=== PATIENT | female | born 1985 | race Caucasian/White ===

== ENCOUNTER 2017-02-01 12:03 | Emergency (ER) | payer SELFPAY ==
--- NOTE | 2017-02-01 13:43 | RADIOLOGY REPORT (SQ) ---
EXAM DESCRIPTION: ANKLE LEFT COMPLETE; FOOT LEFT COMPLETE COMPLETED DATE/TIME: 02/01/2017 1:27 pm REASON FOR STUDY: fall, pain COMPARISON: Foot radiographs from 2011. FINDINGS: Three views left ankle: No fracture or regional significant soft tissue swelling. Three views of the left foot: Soft tissue swelling over the dorsal forefoot. No radiopaque foreign body or fracture evident. IMPRESSION: 1. No overt fracture of the left ankle or foot. Soft tissue swelling over the foot as a leslie. TECHNICAL DOCUMENTATION: JOB ID: [id number]
[2017-02-01] MEDS ORDERED: OXYCODONE-ACETAMINOPHEN 5-325 MG TABLET PO ONE (14:02)
--- NOTE | 2017-02-01 14:59 | ER Document Report ---
HPI - HPI Onset: Yesterday - last evening Onset/Duration: Sudden - Patient was walking to the dark and she apparently kicked a tree stump when she is wearing flip-flops. His pain along her toes and along the top of her left foot. Been able to bear weight but it is painful Quality of pain: Achy, Throbbing Pain Level: 2 Exacerbated by: Movement, Walking Relieved by: Supine, Sitting - CARDIOVASCULAR Cardiovascular: DENIES: Chest pain - REPRODUCTIVE Reproductive: DENIES: : - DERM Skin Color: Normal, [place] Past Medical History - Social History Smoking Status: Current Every Day Smoker Chew tobacco use (# tins/day): No Frequency of alcohol use: None Drug Abuse: None Family History: CAD, Hypertension Patient has suicidal ideation: No Patient has homicidal ideation: No Endocrine Medical History: Reports: Hx Hypothyroidism Renal/ Medical History: Denies: Hx Peritoneal Dialysis Musculoskeltal Medical History: Reports Hx Musculoskeletal Trauma Psychiatric Medical History: Reports: Hx Depression Traumatic Medical History: Reports: Hx Fractures Past Surgical History: Reports: Hx Gynecologic Surgery - x5, Hx Orthopedic Surgery - Right hand - Immunizations Immunizations up to date: Yes Hx Diphtheria, Pertussis, Tetanus Vaccination: Yes - 07/21/2010 Hx Pneumococcal Vaccination: 07/21/00 Vertical Provider Document - CONSTITUTIONAL Agree With Documented VS: Yes Exam Limitations: No Limitations General Appearance: WD/WN, No Apparent Distress - INFECTION CONTROL TRAVEL OUTSIDE OF THE [place]. IN LAST 30 DAYS: No - RESPIRATORY O2 Sat by Pulse Oximetry: 100 - CARDIOVASCULAR Pulses: Normal: Dorsalis pedis - MUSCULOSKELETAL/EXTREMETIES Musculoskeletal/Extremeties: MAEW, FROM, Tender - on the top of her foot, nontender to metatarsal compression, Edema, Eccymosis - NEURO Level of Consciousness: Awake, Alert, Appropriate Motor/Sensory: No Motor Deficit, No Sensory Deficit - DERM Integumentary: Warm, Dry, No Rash. negative: Laceration Notes: Abrasion noted over her toes and the top of her foot but no evidence of lacerations involving the dermis or subcutaneous tissue. Course - Re-evaluation Re-evalutation: 02/01/17 21:40 Patient is a 31-year-old female who is hemodynamic stable, no acute distress afebrile. No evidence of fracture dislocation noted on x-ray. Patient's wounds were irrigated and cleaned at the bedside with dry sterile dressing applied. Patient given an Morris wrap and crutches. Given instructions for rest, ice, compression and elevation. Patient can follow-up with primary care. - Vital Signs Vital signs: Temp Pulse Resp BP Pulse Ox 99.1 F 110 H 16 136/76 H 100 02/01/17 12:14 02/01/17 12:14 02/01/17 12:14 02/01/17 12:14 02/01/17 12:14 - Diagnostic Test Radiology reviewed: Image reviewed, Reports reviewed Discharge - Discharge Clinical Impression: Foot injury Qualifiers: Encounter type: initial encounter Laterality: left Qualified Code(s): S99.922A - Unspecified injury of left foot, initial encounter Condition: Good Disposition: HOME, SELF-CARE Instructions: Contusion ([facility]), Use of Crutches ([facility]), Morris Wrap ([facility]), Ice & Elevation ([facility]), Use of Fdap-Fkk-Briyven Ibuprofen ([facility])
[2017-02-01 15:11] VITALS: BP 131/74
== END 2017-02-01 15:10 | disposition home or self-care (01) ==
LOC: ER 12:03
DX: S90.415A Abrasion, left lesser toe(s), initial encounter (principal); S90.812A Abrasion, left foot, initial encounter; W22.09XA Striking against other stationary object, initial encounter; Y93.01 Activity, walking, marching and hiking; F17.200 Nicotine dependence, unspecified, uncomplicated
CPT/HCPCS: 99283

== ENCOUNTER 2017-02-07 12:04 | Emergency (ER) | payer SELFPAY ==
--- NOTE | 2017-02-07 14:01 | ER Document Report ---
HPI - HPI Patient complains to provider of: foot pain Onset: Last week Onset/Duration: Persistent Quality of pain: Achy Pain Level: 2 Context: Patient states she was walking at night and kicked a tree stump. Patient complains of continued left foot pain and left second toe tenderness. Patient states she was seen in the emergency department and told that she only has a bruise. Patient has crutches at home but has not been using them. Associated Symptoms: Other - Foot pain Exacerbated by: Movement, Walking Relieved by: Denies Similar symptoms previously: No Recently seen / treated by doctor: Yes - ROS ROS below otherwise negative: Yes Systems Reviewed and Negative: Yes All other systems reviewed and negative - CONSTITUTIONAL Constitutional: DENIES: Fever, Chills - NEURO Neurology: DENIES: Weakness - CARDIOVASCULAR Cardiovascular: DENIES: Chest pain - REPRODUCTIVE Reproductive: DENIES: : - MUSCULOSKELETAL Musculoskeletal: REPORTS: Extremity pain, Swelling - DERM Skin Color: Ecchymosis Skin Problems: Abrasion Past Medical History - General Information source: Patient - Social History Smoking Status: Current Every Day Smoker Chew tobacco use (# tins/day): No Frequency of alcohol use: None Drug Abuse: None Occupation: Home care Lives with: Family Family History: CAD, Hypertension Renal/ Medical History: Denies: Hx Peritoneal Dialysis Musculoskeltal Medical History: Reports Hx Musculoskeletal Trauma Psychiatric Medical History: Reports: Hx Depression Traumatic Medical History: Reports: Hx Fractures Past Surgical History: Reports: Hx Gynecologic Surgery - x5, Hx Orthopedic Surgery - Right hand - Immunizations Immunizations up to date: Yes Hx Diphtheria, Pertussis, Tetanus Vaccination: Yes - 07/21/2010 Hx Pneumococcal Vaccination: 07/21/00 Vertical Provider Document - CONSTITUTIONAL Agree With Documented VS: Yes Exam Limitations: No Limitations General Appearance: WD/WN, No Apparent Distress - INFECTION CONTROL TRAVEL OUTSIDE OF THE [place] IN LAST 30 DAYS: No - HEENT HEENT: Atraumatic, Normocephalic - NECK Neck: Normal Inspection - RESPIRATORY Respiratory: No Respiratory Distress O2 Sat by Pulse Oximetry: 98 - CARDIOVASCULAR Pulses: Normal: Posterior tibial, Dorsalis pedis - MUSCULOSKELETAL/EXTREMETIES Musculoskeletal/Extremeties: MAEW, Tender - Left foot tenderness to distal second through fourth metatarsals. Patient with overlying 1+ edema and resolving ecchymosis., Edema, Eccymosis - NEURO Level of Consciousness: Awake, Alert, Appropriate Motor/Sensory: No Motor Deficit - DERM Integumentary: Warm, Dry Notes: Abrasions to 1, 2, 3 rd toes of left foot Course - Vital Signs Vital signs: Temp Pulse Resp BP Pulse Ox 99.0 F 113 H 16 117/69 98 02/07/17 12:08 02/07/17 12:08 02/07/17 12:08 02/07/17 12:08 02/07/17 12:08 - Diagnostic Test Radiology reviewed: Reports reviewed - reviewed x ray from previous ER visit Procedures - Immobilization Left Foot Pre-Proc Neuro Vasc Exam: Normal Immobilizer type: Morris wrap, Post-op shoe Performed by: PCT Post-Proc Neuro Vasc Exam: Normal Alignment checked and good: Yes Discharge - Discharge Clinical Impression: Sprain of foot, left Qualifiers: Encounter type: initial encounter Qualified Code(s): S93.602A - Unspecified sprain of left foot, initial encounter Contusion Qualifiers: Encounter type: initial encounter Contusion area: foot Laterality: left Qualified Code(s): S90.32XA - Contusion of left foot, initial encounter Condition: Stable Disposition: HOME, SELF-CARE Instructions: Sprain ([facility]), Oral Narcotic Medication ([facility]), Morris Wrap ([facility]), Post-Op Shoe ([facility]), Use of Crutches ([facility]) Additional Instructions: Return immediately for any new or worsening symptoms Followup with your primary care provider, call tomorrow to make a followup appointment Follow-up with orthopedic doctor for further evaluation, call Friday for an appointment Use your crutches you have at home to help with ambulation. weightbearing as tolerated to your left foot Prescriptions: Hydrocodone/Acetaminophen [[place] 5-325 Tablet] 1 each PO Q4 PRN #15 tablet PRN Reason: Referrals: [facility] [Provider Group] - Follow up as needed [facility] [Provider Group] - 02/10/17
[2017-02-07] MEDS ORDERED: HYDROCODONE/ACETAMINOPHEN 5-325 MG TABLET PO ONE (14:27)
[2017-02-07 14:29] VITALS: BP 111/73
== END 2017-02-07 14:36 | disposition home or self-care (01) ==
LOC: ER 12:04
DX: S93.602A Unspecified sprain of left foot, initial encounter (principal); S90.32XA Contusion of left foot, initial encounter; W22.09XA Striking against other stationary object, initial encounter; F17.200 Nicotine dependence, unspecified, uncomplicated
CPT/HCPCS: 99283

== ENCOUNTER 2017-03-03 12:54 | Emergency (ER) | payer SELFPAY ==
[2017-03-03] MEDS ORDERED: IBUPROFEN 800 MG TABLET PO ONE (14:08)
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
[2017-03-03 15:06] VITALS: BP 125/77
== END 2017-03-03 15:07 | disposition home or self-care (01) ==
LOC: ER 12:54
DX: S00.83XA Contusion of other part of head, initial encounter (principal); S60.221A Contusion of right hand, initial encounter; R51 Headache; M79.641 Pain in right hand; R11.2 Nausea with vomiting, unspecified; Y09 Assault by unspecified means; F17.210 Nicotine dependence, cigarettes, uncomplicated
CPT/HCPCS: 70450; 70486; 99284

== ENCOUNTER 2017-05-20 13:18 | Emergency (ER) | payer MEDICAID ==
--- NOTE | 2017-05-20 13:44 | ER Document Report ---
ED Medical Screen (RME) - General Chief Complaint: Abdominal Cramping Stated Complaint: ABDOMINAL PAIN,VAGINAL DISCHARGE Time Seen by Provider: 05/20/17 13:42 Notes: 11wks preg with pain/pink dc. TRAVEL OUTSIDE OF THE [place] IN LAST 30 DAYS: No - Related Data Allergies/Adverse Reactions: No Known Allergies Allergy (Verified 05/20/17 13:26) Past Medical History Endocrine Medical History: Reports: Hx Hypothyroidism Renal/ Medical History: Denies: Hx Peritoneal Dialysis GI Medical History: Reports: Hx Gastroesophageal Reflux Disease, Hx Ulcer, Hx Colonoscopy, Hx Endoscopy Musculoskeltal Medical History: Reports Hx Arthritis, Reports Hx Musculoskeletal Trauma - fx finger Psychiatric Medical History: Reports: Hx Anxiety, Hx Depression Traumatic Medical History: Reports: Hx Fractures Past Surgical History: Reports: Hx Gynecologic Surgery - x5, Hx Orthopedic Surgery - Right hand - Immunizations Immunizations up to date: Yes Hx Diphtheria, Pertussis, Tetanus Vaccination: Yes - 07/21/2010
[2017-05-20 14:10] LABS: ABSOLUTE BASOPHILS # (AUTO) 0.1 10^3/uL (0.0-0.2); ABSOLUTE EOSINOPHILS # (AUTO) 0.2 10^3/uL (0.0-0.6); ABSOLUTE LYMPHOCYTES (AUTO) 3.2 10^3/uL (0.5-4.7); ABSOLUTE MONOCYTES (AUTO) 0.8 10^3/uL (0.1-1.4); ABSOLUTE NEUT (AUTO) 7.5 10^3/uL (1.7-8.2); BASOPHILS % (AUTO) 0.5 % (0-2); HEMATOCRIT 37.3 % (36.0-47.0); HEMOGLOBIN 12.2 g/dL (12.0-15.5); HGB HCT DIFFERENCE -0.7; LYMPHOCYTES % (AUTO) 27.3 % (13-45); MEAN CORPUSCULAR HEMOGLOBIN 28.9 pg (27.0-33.4); MEAN CORPUSCULAR HGB CONC 32.8 g/dL (32.0-36.0); MEAN CORPUSCULAR VOLUME 88 fl (80-97); MONOCYTES % (AUTO) 6.6 % (3-13); RED BLOOD COUNT 4.23 10^6/uL (3.72-5.28); RED CELL DISTRIBUTION WIDTH 14.2 % (11.5-14.0); SEGMENTED NEUTROPHILS % (AUTO) 63.6 % (42-78); WHITE BLOOD COUNT 11.7 10^3/uL (4.0-10.5)
[2017-05-20 14:18] LABS: APPEARANCE,URINE SLIGHTLY-CLOUDY; BILIRUBIN,URINE NEGATIVE (NEGATIVE); GLUCOSE, URINE NEGATIVE (NEGATIVE); KETONES,URINE NEGATIVE (NEGATIVE); LEUKOCYTE ESTERASE,URINE TRACE (NEGATIVE); NITRITE,URINE NEGATIVE (NEGATIVE); PROTEIN,URINE NEGATIVE (NEGATIVE); URINE SPECIFIC GRAVITY 1.026
[2017-05-20 14:30] LABS: ALANINE AMINOTRANSFERASE 89 U/L (9-52); ALBUMIN 4.2 g/dL (3.5-5.0); ALKALINE PHOSPHATASE 61 U/L (38-126); ANION GAP 13 (5-19); ASPARTATE AMINO TRANSFERASE 55 U/L (14-36); BILIRUBIN,DIRECT 0.3 mg/dL (0.0-0.4); BILIRUBIN,TOTAL 0.5 mg/dL (0.2-1.3); BLOOD UREA NITROGEN 13 mg/dL (7-20); CALCIUM 9.7 mg/dL (8.4-10.2); CARBON DIOXIDE 25 mmol/L (22-30); CHLORIDE 106 mmol/L (98-107); CREATININE RESULT 0.61 mg/dL (0.52-1.25); GLUCOSE 71 mg/dL (75-110); POTASSIUM 4.6 mmol/L (3.6-5.0); SODIUM 144.1 mmol/L (137-145); TOTAL PROTEIN 7.8 g/dL (6.3-8.2)
--- NOTE | 2017-05-20 14:47 | RADIOLOGY REPORT (SQ) ---
EXAM DESCRIPTION: U/S OB TRANSVAGINAL W/O DOP COMPLETED DATE/TIME: 05/20/2017 2:35 pm REASON FOR STUDY: preg/pain/bleeding COMPARISON: None. TECHNIQUE: Transvaginal static and realtime grayscale images acquired of the pelvis. Additional nimo cted spectral and color Doppler images recorded. All images stored on PACs. bHCG: Not available. LIMITATIONS: None. FINDINGS: FETUS: Living intrauterine . EGA: 5 week 6 day. ABDIRAHMAN: 01/14/2018. FHR: 90 beats per minute. SUBCHORIONIC BLEED: Yes. SIZE OF BLEED: 0.5 x 0.8 cm. UTERUS: No masses. No anomalies. CERVICAL LENGTH: 2.6 cm. Closed. RIGHT ADNEXA: Ovary not identified. No adnexal free fluid. No adnexal masses. LEFT ADNEXA: Normal ovary with normal vascular flow. No adnexal free fluid. Corpus Luteum measuring 1.1 x 1.4 cm. FREE FLUID: None. OTHER: No other significant finding. IMPRESSION: LIVING INTRAUTERINE . EGA 5 WEEK 6 DAY. SMALL SUBCHORIONIC BLEED. Trimester of : First - 0 to 13 weeks. TECHNICAL DOCUMENTATION: JOB ID: [id number] [employer]- All Rights Reserved
--- NOTE | 2017-05-20 15:14 | ER Document Report ---
ED General - General Chief Complaint: Abdominal Cramping Stated Complaint: ABDOMINAL PAIN,VAGINAL DISCHARGE Time Seen by Provider: 05/20/17 13:42 TRAVEL OUTSIDE OF THE [place] IN LAST 30 DAYS: No - HPI Notes: Patient is a 31-year-old female who presents the ED with a positive tests at the health department with newfound spotting that began today with occasional pelvic cramping. Patient states that she had a miscarriage about 6 years ago around the 7-8 week gestation age day. Patient states that she does have a history of endometriosis. She denies any other significant past medical history or drug allergies. She does admit to smoking, but is trying to cut back because of the . She denies any IV drug use or alcohol use. Patient states that she does have a referral pending for an OB/ [facility] through the health department. She denies any other recent illness. She is eating and drinking without any difficulties. + occ n/v in the mornings. She still urinating normally and having normal bowel movements. Patient states that she has not been spotting since the initial found blood prior to arrival. Denies any headache, fever, URI, sore throat, chest pain, palpitations, syncope , cough, shortness of breath, wheeze, dyspnea, diarrhea, urinary retention, dysuria, hematuria, or rash. - Related Data Allergies/Adverse Reactions: No Known Allergies Allergy (Verified 05/20/17 13:26) Past Medical History - Social History Smoking Status: Current Every Day Smoker Family History: Arthritis, CAD, CVA, DM, Hyperlipidemia, Hypertension, Thyroid Disfunction Patient has suicidal ideation: No Patient has homicidal ideation: No Endocrine Medical History: Reports: Hx Hypothyroidism Renal/ Medical History: Denies: Hx Peritoneal Dialysis GI Medical History: Reports: Hx Gastroesophageal Reflux Disease, Hx Ulcer, Hx Colonoscopy, Hx Endoscopy Musculoskeltal Medical History: Reports Hx Arthritis, Reports Hx Musculoskeletal Trauma - fx finger Psychiatric Medical History: Reports: Hx Anxiety, Hx Depression Traumatic Medical History: Reports: Hx Fractures Past Surgical History: Reports: Hx Gynecologic Surgery - x5, Hx Orthopedic Surgery - Right hand - Immunizations Immunizations up to date: Yes Hx Diphtheria, Pertussis, Tetanus Vaccination: Yes - 07/21/2010 Hx Pneumococcal Vaccination: 07/21/00 Review of Systems - Review of Systems Notes: REVIEW OF SYSTEMS: CONSTITUTIONAL : Denies fever, chills, or sweats. Denies recent illness. EENT: Denies eye, ear, throat, or mouth pain or symptoms. Denies nasal or sinus congestion or discharge. Denies throat, tongue, or mouth swelling or difficulty swallowing. CARDIOVASCULAR: Denies chest pain. Denies palpitations or racing or irregular heart beat. Denies ankle edema. RESPIRATORY: Denies cough, cold, or chest congestion. Denies shortness of breath, difficulty breathing, or wheezing. GASTROINTESTINAL: see hpi GENITOURINARY: Denies difficulty urinating, painful urination, burning, frequency, blood in urine, or discharge. FEMALE GENITOURINARY: see hpi MUSCULOSKELETAL: Denies back or neck pain or stiffness. Denies joint pain or swelling. SKIN: Denies rash, lesions or sores. NEUROLOGICAL: Denies confusion or altered mental status. Denies passing out or loss of consciousness. Denies dizziness or lightheadedness. Denies headache. Denies weakness or paralysis or loss of use of either side. Denies problems with gait or speech. Denies sensory loss, numbness, or tingling. ALL OTHER SYSTEMS REVIEWED AND NEGATIVE. Dictation was performed using [employer] recognition software Physical Exam - Vital signs Notes: PHYSICAL EXAMINATION: GENERAL: Well-appearing, well-nourished and in no acute distress. A&Ox4 LUNGS: Breath sounds clear to auscultation bilaterally and equal. No wheezes rales or rhonchi. HEART: Regular rate and rhythm without murmurs, rubs, gallops. ABDOMEN: Soft, nontender, nondistended abdomen. No guarding, no rebound. No masses appreciated. Normal bowel sounds present. No CVA tenderness bilaterally. : deferred Musculoskeletal: FROM to passive/active. Strength 5+/5. Extremities: No cyanosis, clubbing, or edema b/l. Peripheral pulses 2+. Capillary refill less than 3 seconds. NEUROLOGICAL: Normal speech, normal gait. Normal sensory, motor exams PSYCH: Normal mood, normal affect. SKIN: Warm, Dry, normal turgor, no rashes or lesions noted. Course - Re-evaluation Re-evalutation: 05/20/17 15:28 Patient is an afebrile, well-hydrated, 31-year-old female who presents the ED with a small subchorionic bleed and threatened . Vitals are stable. PE is otherwise unremarkable otherwise. CBC, CMP, urinalysis relatively unremarkable. Patient does have a living intrauterine approximately 5 weeks 6 days and heart rate is 90 bpm with a closed cervix. Risks and benefits of vaginal bleeding with reviewed with the patient. Zofran given p.o. for nausea today. Patient is tolerating p.o. without any difficulties. Low suspicion/risk for acute appendicitis, bowel obstruction, acute cholecystitis, acute cholangitis, perforated diverticulitis, incarcerated hernia, pancreatitis, perforated ulcer, peritonitis, sepsis, pelvic inflammatory disease, ectopic , tubo-ovarian abscess, ovarian torsion, or other systemic emergent condition at this time. Patient is aware that her condition can change from initial presentation and she needs to monitor symptoms closely and seek medical attention if any acute changes. Conservative measures otherwise for symptoms. Recheck with OBGYN in 1-2 days. Recheck with your PCM in 3-5 days. Return to the ED with any worsening/concerning symptoms otherwise as reviewed in discharge. Patient is in agreement. - Laboratory Result Diagrams: 05/20/17 13:58 05/20/17 13:58 Laboratory results interpreted by me: 05/20/17 05/20/17 05/20/17 13:58 13:58 13:58 WBC 11.7 H RDW 14.2 H Glucose 71 L AST 55 H ALT 89 H Beta HCG, Quant 87754.00 H Urine Urobilinogen 2.0 H Ur Leukocyte Esterase TRACE H Urine Ascorbic Acid 40 H Discharge - Discharge Clinical Impression: Subchorionic bleed Qualifiers: Fetus number: single or unspecified fetus Trimester: first trimester Qualified Code(s): O41.8X10 - Other specified disorders of amniotic fluid and membranes, first trimester, not applicable or unspecified; O46.8X1 - Other antepartum hemorrhage, first trimester; O46.8X1 - Other antepartum hemorrhage, first trimester Qualifiers: Weeks of gestation: less than 8 weeks Qualified Code(s): Z3A.01 - Less than 8 weeks gestation of Condition: Stable Disposition: HOME, SELF-CARE Instructions: Ob-[facility] [facility], Bleeding During Early ([facility]) Additional Instructions: Maintain adequate fluid and food intake [place] diet (B.R.A.T.) Bananas, rice, apples, toast, etc Zofran as needed tylenol if needed Monitor for any worsening symptoms Recheck with OB-[facility] in 1-2 days* Recheck with your PCM in 3-5 days Return to the ED with any worsening symptoms and/or development of fever, headache, chest pain, palpitations, syncope, shortness of breath, trouble breathing, abdominal pain, n/v/d, blood in stool/urine, worsening pelvic cramping, worsening vaginal bleeding, weakness, or other worsening symptoms that are concerning to you. Prescriptions: Ondansetron [Zofran Odt 4 mg Tablet] 1 - 2 tab PO Q4H PRN #15 tab.rapdis PRN Reason: For Nausea/Vomiting Referrals: [facility] [Provider Group] - 05/22/17 HAYDEE PAULA MD [ACTIVE STAFF] - 05/22/17
[2017-05-20] MEDS ORDERED: ONDANSETRON 4 MG TAB.RAPDIS PO ONE (15:29)
[2017-05-20 16:03] VITALS: BP 110/50
== END 2017-05-20 16:09 | disposition home or self-care (01) ==
LOC: ER 13:18
DX: O46.8X1 Other antepartum hemorrhage, first trimester (principal); O41.8X10 Other specified disorders of amniotic fluid and membranes, first trimester, not applicable or unspecified; R10.9 Unspecified abdominal pain; N89.8 Other specified noninflammatory disorders of vagina; R10.2 Pelvic and perineal pain; F17.200 Nicotine dependence, unspecified, uncomplicated; Z3A.01 Less than 8 weeks gestation of pregnancy
CPT/HCPCS: 99284; 86900; 86901; 36415; 84702; 85025; 80053; 81001; 76817; S0119

== ENCOUNTER → 2017-06-19 | Outpatient (CLI) | payer SELFPAY ==
--- NOTE | 2017-06-19 16:08 | RADIOLOGY REPORT (SQ) ---
EXAM DESCRIPTION: U/S [id number] TRNABD 1GES W/ODOP COMPLETED DATE/TIME: 06/19/2017 3:49 pm REASON FOR STUDY: Z34.81 ENCOUNTER FOR SUPRVSN OF NORMAL , FIRST TRIMESTER Z34.81 ENCOUNTE R FOR SUPRVSN OF NORMAL , FIRST TRIM COMPARISON: OB ultrasound 05/20/2017, 05/23/2017 TECHNIQUE: Transabdominal static and realtime grayscale images acquired of the pelvis. Additional se lected spectral and color Doppler images recorded. All images stored on PACs. bHCG: Not available LIMITATIONS: Right adnexa not well seen due to bowel gas FINDINGS: There is an intrauterine gestational sac. This is irregular in shape. No embryo is ident ified. By mean sac diameter estimated age is 6 weeks 2 days. This represents a blighted ovum. UTERUS: Normal size, 11 x 4.7 x 6.5 cm in size. CERVICAL LENGTH: 2.7 cm Closed. RIGHT ADNEXA: Not visualized due to adnexal bowel gas. LEFT ADNEXA: Normal ovary with normal vascular flow. Left ovary measures 3.4 x 1.9 by 2.4 cm in size . No adnexal free fluid. No adnexal masses. FREE FLUID: None. OTHER: No other significant finding. IMPRESSION: Empty gestational sac measures 6 weeks in age by mean sac diameter. Blighted ovum. This result was called to anel Mercado message on phone 1540 hours 06/19/2017 Trimester of : First - 0 to 13 weeks. TECHNICAL DOCUMENTATION: JOB ID: [id number] [employer]- All Rights Reserved
== END ==
LOC: RAD 14:50
PROVIDERS: ATTEND Nurse Practitioner Women's Health
DX: Z34.81 Encounter for supervision of other normal pregnancy, first trimester (principal)
CPT/HCPCS: 76801

== ENCOUNTER 2017-07-04 10:25 | Day surgery (SDC) | payer SELFPAY ==
[~2017-07-04 10:25] MED LIST: DEXAMETHASONE SOD PHOSPHATE INJ 4 MG/1 ML VIAL ONE; FENTANYL CITRATE INJ/PF 100 MCG/2 ML AMPUL ONE; MIDAZOLAM 2 MG/2 ML INJ ONE; ONDANSETRON HCL INJ/PF 4 MG/2 ML SDV ONE; PROPOFOL INJ 200 MG/20 ML VIAL IV ONE
[2017-07-04] MEDS ORDERED: KETAMINE HCL INJ 500 MG/10 ML VIAL ONE (12:13)
[2017-07-04] MEDS ORDERED: ACETAMINOPHEN 100 ML IV ONE (12:13)
--- NOTE | 2017-07-04 12:47 | Operative Report ---
Operative Report DATE OF SURGERY: 07/04/17 PREOPERATIVE DIAGNOSIS: Incomplete AB POSTOPERATIVE DIAGNOSIS: Same OPERATION: Suction D&C SURGEON: HAYDEE PAULA ANESTHESIA: GA TISSUE REMOVED OR ALTERED: Uterine contents COMPLICATIONS: None ESTIMATED BLOOD LOSS: Minimal INTRAOPERATIVE FINDINGS: Sounded to 8 cm before and after the case PROCEDURE: Patient was taken the OR and placed in supine position. General anesthesia was induced. She is placed in dorsolithotomy position using Hoang stirrups. Her perineum and vagina were prepared and draped sterile fashion her bladder was drained with a red rubber catheter. A weighted speculum was placed in the anterior lip cervix was grasped with a single-tooth tenaculum. Uterus sounded 8 cm before and after the case. Cervix was gently dilated allowing a size 8 suction curette could be used to evacuate uterine contents. At the end of the case a gentle sharp curette was used to explore the uterus and no retained products were identified. All instruments were removed she is placed back in supine position taken to recovery room in stable condition.
[2017-07-04] MEDS ORDERED: KETOROLAC TROMETHAMINE INJ/PF 30 MG/1 ML SDV ONE (13:04)
[2017-07-04] MEDS ORDERED: RINGERS SOLUTION,LACTATED 1,000 ML IV PRN (13:16)
[2017-07-04] MEDS ORDERED: OXYCODONE-ACETAMINOPHEN 5-325 MG TABLET PO PRN ×4 (13:16→13:34)
[2017-07-04] MEDS ORDERED: IBUPROFEN 800 MG TABLET PO PRN (13:16)
[2017-07-04] MEDS ORDERED: KETOROLAC TROMETHAMINE INJ/PF 30 MG/1 ML SDV IV PRN (13:17)
[2017-07-04] MEDS ORDERED: MEPERIDINE HCL/PF INJ 25 MG/1 ML DISP.SYRIN IV PRN (13:34)
[2017-07-04] MEDS ORDERED: PROMETHAZINE HCL INJ 25 MG/1 ML VIAL IV PRN (13:34)
[2017-07-04] MEDS ORDERED: DIPHENHYDRAMINE HCL 50 MG/ML VIAL IV PRN (13:34)
[2017-07-04 15:12] VITALS: BP 114/66
== END 2017-07-04 15:00 | disposition home or self-care (01) ==
LOC: OROUT 10:25
PROVIDERS: ATTEND Obstetrics & Gynecology
PROC: 10D17Z9 Manual Extraction of Products of Conception, Retained, Via Natural or Artificial Opening (ICD-10-PCS; principal; 2017-07-04 12:30)
DX: O03.39 Incomplete spontaneous abortion with other complications (principal); F17.210 Nicotine dependence, cigarettes, uncomplicated; Z79.899 Other long term (current) drug therapy
CPT/HCPCS: 88305 ×2; 59812; J2250; J1100; J3490; J1885; J2405; J2704; J0131; 1965; J3010

== ENCOUNTER 2017-07-28 08:24 | Emergency (ER) | payer MEDICAID ==
[2017-07-28 08:28] VITALS: BP 129/62
--- NOTE | 2017-07-28 08:49 | ER Document Report ---
ED General - General Chief Complaint: Pain With Urination Stated Complaint: URINARY ISSUES Time Seen by Provider: 07/28/17 08:32 Mode of Arrival: Ambulatory Information source: Patient Notes: 31-year-old female presents with complaints of burning on urination is worsened over the past few days. Patient notes symptoms are similar to previous UTI. She denies any fevers or chills denies any vomiting admits to nausea when her pain occurs denies any flank pain TRAVEL OUTSIDE OF THE [place] IN LAST 30 DAYS: No - HPI Onset: Other - Worsened over the past 3 days Onset/Duration: Intermittent Quality of pain: Burning Severity: Mild Pain Level: 1 Associated symptoms: Other Exacerbated by: Other - Urination Relieved by: Denies Similar symptoms previously: No Recently seen / treated by doctor: No - Related Data Allergies/Adverse Reactions: No Known Allergies Allergy (Verified 07/28/17 08:26) Past Medical History - Social History Smoking Status: Never Smoker Cigarette use (# per day): No Chew tobacco use (# tins/day): No Smoking Education Provided: No Family History: Arthritis, CAD, CVA, DM, Hyperlipidemia, Hypertension, Thyroid Disfunction - Past Medical History Cardiac Medical History: Denies: Hx Coronary Artery Disease, Hx Heart Attack, Hx Hypertension Pulmonary Medical History: Denies: Hx Asthma, Hx Bronchitis, Hx COPD, Hx Pneumonia Neurological Medical History: Denies: Hx Cerebrovascular Accident, Hx Seizures Endocrine Medical History: Reports: Hx Hypothyroidism Renal/ Medical History: Denies: Hx Peritoneal Dialysis GI Medical History: Reports: Hx Gastroesophageal Reflux Disease, Hx Ulcer, Hx Colonoscopy, Hx Endoscopy Musculoskeltal Medical History: Reports Hx Arthritis - IN HAND , Reports Hx Musculoskeletal Trauma - fx finger Psychiatric Medical History: Reports: Hx Anxiety, Hx Depression Traumatic Medical History: Reports: Hx Fractures Past Surgical History: Reports: Hx Gynecologic Surgery - x5, Hx Orthopedic Surgery - Right hand - Immunizations Immunizations up to date: Yes Hx Diphtheria, Pertussis, Tetanus Vaccination: Yes - 07/21/2008 Hx Pneumococcal Vaccination: 07/21/00 Review of Systems - Review of Systems Notes: REVIEW OF SYSTEMS: CONSTITUTIONAL : Denies fever, chills, or sweats. Denies recent illness. EENT: Denies eye, ear, throat, or mouth pain or symptoms. Denies nasal or sinus congestion or discharge. Denies throat, tongue, or mouth swelling or difficulty swallowing. CARDIOVASCULAR: Denies chest pain. Denies palpitations or racing or irregular heart beat. Denies ankle edema. RESPIRATORY: Denies cough, cold, or chest congestion. Denies shortness of breath, difficulty breathing, or wheezing. GASTROINTESTINAL: Denies abdominal pain or distention. Denies nausea, vomiting , or diarrhea. Denies blood in vomitus, stools, or per rectum. Denies black, tarry stools. Denies constipation. GENITOURINARY: Admits to burning urination FEMALE GENITOURINARY: Denies vaginal bleeding, heavy or abnormal periods, irregular periods. Denies vaginal discharge or odor. MUSCULOSKELETAL: Denies back or neck pain or stiffness. Denies joint pain or swelling. SKIN: Denies rash, lesions or sores. HEMATOLOGIC : Denies easy bruising or bleeding. LYMPHATIC: Denies swollen, enlarged glands. NEUROLOGICAL: Denies confusion or altered mental status. Denies passing out or loss of consciousness. Denies dizziness or lightheadedness. Denies headache. Denies weakness or paralysis or loss of use of either side. Denies problems with gait or speech. Denies sensory loss, numbness, or tingling. Denies seizures. PSYCHIATRIC: Denies anxiety or stress. Denies depression, suicidal ideation, or homicidal ideation. ALL OTHER SYSTEMS REVIEWED AND NEGATIVE. PHYSICAL EXAMINATION: GENERAL: Well-appearing, well-nourished and in no acute distress. HEAD: Atraumatic, normocephalic. EYES: Pupils equal round and reactive to light, extraocular movements intact, conjunctiva are normal. ENT: Nares patent, oropharynx clear without exudates. Moist mucous membranes. NECK: Normal range of motion, supple without lymphadenopathy LUNGS: Breath sounds clear to auscultation bilaterally and equal. No wheezes rales or rhonchi. HEART: Regular rate and rhythm without murmurs ABDOMEN: Soft, nontender, nondistended abdomen. No guarding, no rebound. No masses appreciated. Female : deferred Musculoskeletal: Normal range of motion, no pitting or edema. No cyanosis. NEUROLOGICAL: Cranial nerves grossly intact. Normal speech, normal gait. Normal sensory, motor exams PSYCH: Normal mood, normal affect. SKIN: Warm, Dry, normal turgor, no rashes or lesions noted. Dictation was performed using [employer] recognition software Physical Exam - Vital signs Vitals: Temp Pulse Resp BP Pulse Ox 98.0 F 88 18 129/62 H 98 07/28/17 08:27 07/28/17 08:27 07/28/17 08:27 07/28/17 08:27 07/28/17 08:27 Course - Re-evaluation Re-evalutation: 07/28/17 08:49 Patient has probable UTI UA and hCG pending 07/28/17 09:26 Urinalysis is consistent with urinary tract infection, patient will be started on antibiotics otherwise well-appearing no distress After performing a Medical Screening Examination, I estimate there is LOW risk for ACUTE APPENDICITIS, BOWEL OBSTRUCTION, ACUTE CHOLECYSTITIS, PERFORATED DIVERTICULITIS, INCARCERATED HERNIA, PANCREATITIS, PELVIC INFLAMMATORY DISEASE, PERFORATED ULCER, ECTOPIC , or TUBO-OVARIAN ABSCESS, thus I consider the discharge disposition reasonable. Also, there is no evidence or peritonitis , sepsis, or toxicity. I have reevaluated this patient multiple times and no significant life threatening changes are noted. The patient and I have discussed the diagnosis and risks, and we agree with discharging home with close follow-up with the understanding that symptoms and presentations can change. We also discussed returning to the Emergency Department immediately if new or worsening symptoms occur. We have discussed the symptoms which are most concerning (e.g., bloody stool, fever, changing or worsening pain, vomiting) that necessitate immediate return. - Vital Signs Vital signs: Temp Pulse Resp BP Pulse Ox 98.0 F 88 18 129/62 H 98 07/28/17 08:27 07/28/17 08:27 07/28/17 08:27 07/28/17 08:27 07/28/17 08:27 - Laboratory Laboratory results interpreted by me: 07/28/17 08:53 Urine Blood LARGE H Urine Nitrite POSITIVE H Urine Urobilinogen 4.0 H Ur Leukocyte Esterase MODERATE H Discharge - Discharge Clinical Impression: Dysuria UTI (urinary tract infection) Qualifiers: Urinary tract infection type: acute cystitis Hematuria presence: without hematuria Qualified Code(s): N30.00 - Acute cystitis without hematuria Condition: Stable Disposition: HOME, SELF-CARE Instructions: Urinary Tract Infection ([facility]) Prescriptions: Cephalexin Monohydrate [Keflex 500 mg Capsule] 500 mg PO BID 7 Days capsule Phenazopyridine HCl [Pyridium 200 mg Tablet] 200 mg PO TID #9 tablet
[2017-07-28 09:17] LABS: APPEARANCE,URINE SLIGHTLY-CLOUDY; BILIRUBIN,URINE NEGATIVE (NEGATIVE); COLOR,URINE AMBER; GLUCOSE, URINE NEGATIVE (NEGATIVE); KETONES,URINE NEGATIVE (NEGATIVE); LEUKOCYTE ESTERASE,URINE MODERATE (NEGATIVE); NITRITE,URINE POSITIVE (NEGATIVE); PROTEIN,URINE NEGATIVE (NEGATIVE); URINE SPECIFIC GRAVITY 1.011
[2017-07-28] MEDS ORDERED: ONDANSETRON ODT 4 MG TAB (6 TAB/ER DISP) PO PRN (09:41)
== END 2017-07-28 09:48 | disposition home or self-care (01) ==
LOC: ER 08:24
DX: N30.00 Acute cystitis without hematuria (principal)
CPT/HCPCS: 81001; 81025; 99283

== ENCOUNTER 2017-08-27 08:30 | Emergency (ER) | payer MEDICAID ==
--- NOTE | 2017-08-27 10:23 | ER Document Report ---
HPI - HPI Pain Level: 5 Context: 31 yo female c/o dysuria, urgency, frequency, small voids x 3 days. no fever. + nausea. no vomiting. no vaginal discharge, odor or pain pt reports she had a UTI and treated with Cipro about 3 wks ago. completed abx course. Associated Symptoms: Nausea Exacerbated by: Denies Relieved by: Denies Similar symptoms previously: Yes Recently seen / treated by doctor: Yes - CONSTITUTIONAL Constitutional: DENIES: Fever, Chills - EENT EENT: DENIES: Sore Throat, Ear Pain, Eye problems - NEURO Neurology: DENIES: Headache, Weakness, Vision blurred, Dizzinesss / Vertigo - CARDIOVASCULAR Cardiovascular: DENIES: Chest pain - RESPIRATORY Respiratory: DENIES: Trouble Breathing, Coughing - GASTROINTESTINAL Gastrointestinal: REPORTS: Abdominal Pain - pain around bladder area. DENIES: Black / Bloody Stools - URINARY Urinary: REPORTS: Dysuria - 5/5, Urgency, Frequency - REPRODUCTIVE LMP: [id number] Reproductive: DENIES: :, Postmenopausal, Abnormal bleeding / discharge - MUSCULOSKELETAL Musculoskeletal: DENIES: Extremity pain Past Medical History - General Information source: Patient - Social History Smoking Status: Current Every Day Smoker Chew tobacco use (# tins/day): No Frequency of alcohol use: None Drug Abuse: None Lives with: Family Family History: Arthritis, CAD, CVA, DM, Hyperlipidemia, Hypertension, Thyroid Disfunction Patient has suicidal ideation: No Patient has homicidal ideation: No - Past Medical History Cardiac Medical History: Denies: Hx Coronary Artery Disease, Hx Heart Attack, Hx Hypertension Pulmonary Medical History: Denies: Hx Asthma, Hx Bronchitis, Hx COPD, Hx Pneumonia Neurological Medical History: Denies: Hx Cerebrovascular Accident, Hx Seizures Endocrine Medical History: Reports: Hx Hypothyroidism Renal/ Medical History: Denies: Hx Peritoneal Dialysis GI Medical History: Reports: Hx Gastroesophageal Reflux Disease, Hx Ulcer, Hx Colonoscopy, Hx Endoscopy Musculoskeltal Medical History: Reports Hx Arthritis - IN HAND , Reports Hx Musculoskeletal Trauma - fx finger Psychiatric Medical History: Reports: Hx Anxiety, Hx Depression Traumatic Medical History: Reports: Hx Fractures Past Surgical History: Reports: Hx Gynecologic Surgery - x5, Hx Orthopedic Surgery - Right hand - Immunizations Immunizations up to date: Yes Hx Diphtheria, Pertussis, Tetanus Vaccination: Yes - 07/21/2008 Hx Pneumococcal Vaccination: 07/21/00 Vertical Provider Document - CONSTITUTIONAL Agree With Documented VS: Yes Exam Limitations: No Limitations General Appearance: WD/WN, No Apparent Distress - INFECTION CONTROL TRAVEL OUTSIDE OF THE [place] IN LAST 30 DAYS: No - HEENT HEENT: Atraumatic, Normal ENT Exam, PERRLA - NECK Neck: Normal Inspection, Supple - RESPIRATORY Respiratory: Breath Sounds Normal, No Respiratory Distress - CARDIOVASCULAR Cardiovascular: Regular Rate - GI/ABDOMEN Gastrointestinal: Abdomen Soft, Abdomen Tender - mild suprapubic tenderness. negative: Abdominal Guarding, Abdominal Rebound - BACK Back: Normal Inspection. negative: CVA Tenderness-Right, CVA Tenderness-Left - MUSCULOSKELETAL/EXTREMETIES Musculoskeletal/Extremeties: MAEW - NEURO Level of Consciousness: Awake, Alert, Appropriate - DERM Integumentary: Warm, Dry, No Rash Course - Re-evaluation Re-evalutation: 08/27/17 10:19 pt is afebrile, nontoxic. H&P c/w uncomplicated cystitis. will treat with oral antibiotic. urine culture ordered. pt stable for discharge and agreeable with plan Discharge - Discharge Clinical Impression: Cystitis Condition: Stable Disposition: HOME, SELF-CARE Instructions: Urinary Tract Infection ([facility]), Antibiotic Therapy ([facility]), Urinary Anesthetic Agent ([facility]), Antinausea Medication ([facility]) Additional Instructions: take all meds as prescribed urine culture is pending, we will call you with those results. nausea med as needed take yeast pill after antibiotic if needed increase hydration follow up with your pcm if symptoms persist Prescriptions: Fluconazole [Diflucan] 200 mg PO ONCE PRN #1 tablet PRN Reason: Nitrofurantoin Macrocrystal [Macrodantin] 100 mg PO QID #28 capsule Promethazine HCl [Phenergan 25 mg Tablet] 25 mg PO Q6H PRN #12 tablet PRN Reason: Referrals: NEVAEH MCNEIL MD [Primary Care Provider] - Follow up as needed
[2017-08-27 10:43] VITALS: BP 121/76
== END 2017-08-27 11:03 | disposition home or self-care (01) ==
LOC: ER 08:30
DX: N30.90 Cystitis, unspecified without hematuria (principal); R11.0 Nausea; F17.200 Nicotine dependence, unspecified, uncomplicated
CPT/HCPCS: 87086; 87088; 87186; 99283

== ENCOUNTER 2017-10-20 09:33 | Emergency (ER) | payer MEDICAID ==
[2017-10-20 09:38] VITALS: BP 127/72
[2017-10-20] MEDS ORDERED: ONDANSETRON 4 MG TAB.RAPDIS PO ONE (09:41)
--- NOTE | 2017-10-20 09:46 | ER Document Report ---
ED General - General Chief Complaint: Urinary Problem Stated Complaint: URINARY PROBLEMS Time Seen by Provider: 10/20/17 09:40 TRAVEL OUTSIDE OF THE [place] IN LAST 30 DAYS: No - HPI Patient complains to provider of: Urinary difficulty Notes: Patient coming in with dysuria currently taking Azo bilateral lower back pain ongoing for the last few days. Patient has had a recent visits each month and has been diagnosed with urinary tract infection. Patient denies any fevers chills vomiting diarrhea. States slight nausea patient otherwise looks to be nontoxic upon my evaluation. Patient states she is voiding after sex however not every time. Denies vaginal discharge denies new sexual partners denies any bubble baths - Related Data Allergies/Adverse Reactions: No Known Allergies Allergy (Verified 10/20/17 09:34) Past Medical History - Social History Smoking Status: Current Every Day Smoker Chew tobacco use (# tins/day): No Frequency of alcohol use: None Drug Abuse: None Family History: Arthritis, CAD, CVA, DM, Hyperlipidemia, Hypertension, Thyroid Disfunction Patient has suicidal ideation: No Patient has homicidal ideation: No - Past Medical History Cardiac Medical History: Denies: Hx Coronary Artery Disease, Hx Heart Attack, Hx Hypertension Pulmonary Medical History: Denies: Hx Asthma, Hx Bronchitis, Hx COPD, Hx Pneumonia Neurological Medical History: Denies: Hx Cerebrovascular Accident, Hx Seizures Endocrine Medical History: Reports: Hx Hypothyroidism Renal/ Medical History: Denies: Hx Peritoneal Dialysis GI Medical History: Reports: Hx Gastroesophageal Reflux Disease, Hx Ulcer, Hx Colonoscopy, Hx Endoscopy Musculoskeltal Medical History: Reports Hx Arthritis - IN R HAND, Reports Hx Musculoskeletal Trauma - fx finger Psychiatric Medical History: Reports: Hx Anxiety, Hx Depression Traumatic Medical History: Reports: Hx Fractures Past Surgical History: Reports: Hx Gynecologic Surgery - x5, Hx Orthopedic Surgery - Right hand - Immunizations Immunizations up to date: Yes Hx Diphtheria, Pertussis, Tetanus Vaccination: Yes - 07/21/2008 Hx Pneumococcal Vaccination: 07/21/00 Review of Systems - Review of Systems Constitutional: No symptoms reported EENT: No symptoms reported Cardiovascular: No symptoms reported Respiratory: No symptoms reported Gastrointestinal: Nausea Genitourinary: No symptoms reported Female Genitourinary: No symptoms reported Musculoskeletal: No symptoms reported Skin: No symptoms reported Hematologic/Lymphatic: No symptoms reported Neurological/Psychological: No symptoms reported -: Yes All other systems reviewed and negative Physical Exam - Vital signs Vitals: Temp Pulse Resp BP Pulse Ox 98.6 F 89 15 127/72 H 97 10/20/17 09:36 10/20/17 09:36 10/20/17 09:36 10/20/17 09:36 10/20/17 09:36 Interpretation: Normal - General General appearance: Appears well, Alert - HEENT Head: Normocephalic, Atraumatic Eyes: Normal Pupils: PERRL - Respiratory Respiratory status: No respiratory distress Chest status: Nontender Breath sounds: Normal Chest palpation: Normal - Cardiovascular Rhythm: Regular Heart sounds: Normal auscultation Murmur: No - Abdominal Inspection: Normal Distension: No distension Bowel sounds: Normal Tenderness: Nontender Organomegaly: No organomegaly - Back Back: Normal, Nontender - Extremities General upper extremity: Normal inspection, Nontender, Normal color, Normal ROM , Normal temperature General lower extremity: Normal inspection, Nontender, Normal color, Normal ROM , Normal temperature, Normal weight bearing. No: Anna's sign - Neurological Neuro grossly intact: Yes Cognition: Normal Orientation: AAOx4 Levi Coma Scale Eye Opening: Spontaneous Levi Coma Scale Verbal: Oriented [place] Coma Scale Motor: Obeys Commands Levi Coma Scale Total: 15 Speech: Normal Motor strength normal: LUE, RUE, LLE, RLE Sensory: Normal - Psychological Associated symptoms: Normal affect, Normal mood - Skin Skin Temperature: Warm Skin Moisture: Dry Skin Color: Normal Course - Re-evaluation Re-evalutation: 10/20/17 10:12 Patient urinalysis does show signs of significant urinary tract infection. We will start the patient on Keflex I will send the patient's urine for culture. Previous microbiology studies showed sensitivity to all antibiotics. Patient shows no signs of sepsis or other significant pathology. No CVA tenderness no suspicion at this time for any nephrolithiasis. Patient will be discharged on follow-up primary care physician. - Vital Signs Vital signs: Temp Pulse Resp BP Pulse Ox 98.6 F 89 15 127/72 H 97 10/20/17 09:36 10/20/17 09:36 10/20/17 09:36 10/20/17 09:36 10/20/17 09:36 - Laboratory Laboratory results interpreted by me: 10/20/17 09:42 Urine Protein 100 H Urine Blood MODERATE H Urine Nitrite POSITIVE H Urine Urobilinogen 8.0 H Ur Leukocyte Esterase LARGE H Discharge - Discharge Clinical Impression: UTI (urinary tract infection) Qualifiers: Urinary tract infection type: site unspecified Hematuria presence: without hematuria Qualified Code(s): N39.0 - Urinary tract infection, site not specified Condition: Good Disposition: HOME, SELF-CARE Instructions: Cephalexin ([facility]), Urinary Tract Infection ([facility]) Additional Instructions: Your urinalysis does show signs of a UTI. Please take medication as prescribed. Return to ER symptoms worsen. Prescriptions: Cephalexin Monohydrate [Keflex 500 mg Capsule] 500 mg PO Q6H 10 Days #40 capsule Ondansetron [Zofran Odt] 4 mg PO Q6 PRN #30 tab.rapdis PRN Reason: For Nausea/Vomiting Forms: Return to Work
[2017-10-20 10:09] LABS: APPEARANCE,URINE CLOUDY; BILIRUBIN,URINE NEGATIVE (NEGATIVE); COLOR,URINE ORANGE; GLUCOSE, URINE NEGATIVE (NEGATIVE)
[2017-10-20 10:10] LABS: KETONES,URINE NEGATIVE (NEGATIVE); LEUKOCYTE ESTERASE,URINE LARGE (NEGATIVE); NITRITE,URINE POSITIVE (NEGATIVE); PROTEIN,URINE 100 mg/dL (NEGATIVE); URINE SPECIFIC GRAVITY 1.009
[2017-10-20] MEDS ORDERED: CEPHALEXIN 500 MG CAPSULE PO ONE (10:11)
== END 2017-10-20 10:25 | disposition home or self-care (01) ==
LOC: ER 09:33
DX: N39.0 Urinary tract infection, site not specified (principal); R11.0 Nausea; F17.200 Nicotine dependence, unspecified, uncomplicated
CPT/HCPCS: 99283; 87086; 81025; 87088; 81001; 87186; S0119

== ENCOUNTER 2017-11-21 08:52 | Emergency (ER) | payer MEDICAID ==
[2017-11-21 08:59] VITALS: BP 129/70
--- NOTE | 2017-11-21 09:16 | ER Document Report ---
HPI - HPI Pain Level: 3 Notes: Patient is a 32-year-old female with a history of recurrent UTIs who presents to the ED complaining of urinary burning, urgency, frequency, foul odor 1 day. Patient states that she is waiting on a consult with a urologist for a possible stricture that could be resulting in her frequent UTIs per patient. She is eating and drinking without difficulties. She is having normal bowel movements. Denies any drug allergies. Patient does admit to smoking. Denies any headache, fever, neck pain, URI, sore throat, chest pain, palpitations, syncope, cough, shortness of breath, wheeze, dyspnea, abdominal pain, nausea/ vomiting/diarrhea, urinary retention, or rash. - ROS Systems Reviewed and Negative: Yes All other systems reviewed and negative - REPRODUCTIVE Reproductive: DENIES: : Past Medical History - Social History Smoking Status: Current Every Day Smoker Family History: Arthritis, CAD, CVA, DM, Hyperlipidemia, Hypertension, Thyroid Disfunction - Past Medical History Cardiac Medical History: Denies: Hx Coronary Artery Disease, Hx Heart Attack, Hx Hypertension Pulmonary Medical History: Denies: Hx Asthma, Hx Bronchitis, Hx COPD, Hx Pneumonia Neurological Medical History: Denies: Hx Cerebrovascular Accident, Hx Seizures Endocrine Medical History: Reports: Hx Hypothyroidism Renal/ Medical History: Denies: Hx Peritoneal Dialysis GI Medical History: Reports: Hx Gastroesophageal Reflux Disease, Hx Ulcer, Hx Colonoscopy, Hx Endoscopy Musculoskeltal Medical History: Reports Hx Arthritis - IN R HAND, Reports Hx Musculoskeletal Trauma - fx finger Psychiatric Medical History: Reports: Hx Anxiety, Hx Depression Traumatic Medical History: Reports: Hx Fractures Past Surgical History: Reports: Hx Gynecologic Surgery - x5, Hx Orthopedic Surgery - Right hand - Immunizations Immunizations up to date: Yes Hx Diphtheria, Pertussis, Tetanus Vaccination: Yes - 07/21/2008 Hx Pneumococcal Vaccination: 07/21/00 Vertical Provider Document - CONSTITUTIONAL Agree With Documented VS: Yes Notes: PHYSICAL EXAMINATION: GENERAL: Well-appearing, well-nourished and in no acute distress. LUNGS: Breath sounds clear to auscultation bilaterally and equal. No wheezes rales or rhonchi. HEART: Regular rate and rhythm without murmurs, rubs, gallops. ABDOMEN: Soft, nontender, nondistended abdomen. No guarding, no rebound. No masses appreciated. Normal bowel sounds present. No CVA tenderness bilaterally. Extremities: No cyanosis, clubbing, or edema b/l. Peripheral pulses 2+. Capillary refill less than 3 seconds. NEUROLOGICAL: Normal speech, normal gait. Normal sensory, motor exams PSYCH: Normal mood, normal affect. SKIN: Warm, Dry, normal turgor, no rashes or lesions noted. - INFECTION CONTROL TRAVEL OUTSIDE OF THE [place] IN LAST 30 DAYS: No Course - Re-evaluation Re-evalutation: 11/21/17 09:29 Patient is an afebrile, well-hydrated, 32-year-old female who presents to the ED with an acute UTI. Vitals are acceptable. PE is otherwise unremarkable. See urinalysis results. Urine cultures pending. HCG negative. Patient has no tachycardia, tachypnea, or hypoxia. Abdomen is soft nontender. No CVA tenderness bilaterally. She is tolerating p.o. without difficulties. I will be sending her home on Keflex based on previous urine cultures. Conservative measures otherwise for symptoms. Low suspicion/risk for acute appendicitis, bowel obstruction, acute cholecystitis, acute cholangitis, perforated diverticulitis, incarcerated hernia, pancreatitis, perforated ulcer, peritonitis , sepsis, ectopic , tubo-ovarian abscess, ovarian torsion, or other systemic emergent condition at this time. Patient is aware that her condition can change from initial presentation and she needs to monitor symptoms closely and seek medical attention if any acute changes. Recheck with your PCM in 3-5 days. Schedule consult with a urologist. Return to the ED with any worsening/ concerning symptoms otherwise as reviewed in discharge. Patient is in agreement. - Vital Signs Vital signs: Temp Pulse Resp BP Pulse Ox 97.7 F 85 14 129/70 H 98 11/21/17 08:58 11/21/17 08:58 11/21/17 08:58 11/21/17 08:58 11/21/17 08:58 Discharge - Discharge Clinical Impression: Acute UTI (urinary tract infection) Condition: Stable Disposition: HOME, SELF-CARE Instructions: Cephalexin ([facility]), Urinary Tract Infection ([facility]) Additional Instructions: Push fluids (i.e. water, cranberry juice) Proper hygenic technique Keep the skin clean Tylenol/ibuprofen as needed Take medications as directed F/u with your PCM in 3-5 days for a recheck Schedule a consult with a Urologist Return to the ED with any worsening symptoms and/or development of fever, headache, chest pain, palpitations, syncope, shortness of breath, trouble breathing, abdominal pain, n/v/d, blood in stool/urine, loss of control of bowel /bladder, urinary retention, or other worsening symptoms that are concerning to you. Prescriptions: Cephalexin Monohydrate [Keflex 500 mg Capsule] 500 mg PO BID #20 capsule Forms: Elevated Blood Pressure, Smoking Cessation Education Referrals: [facility] [Provider Group] - Follow up as needed
[2017-11-21 09:25] LABS: APPEARANCE,URINE SLIGHTLY-CLOUDY; BILIRUBIN,URINE NEGATIVE (NEGATIVE); GLUCOSE, URINE NEGATIVE (NEGATIVE); KETONES,URINE NEGATIVE (NEGATIVE); LEUKOCYTE ESTERASE,URINE SMALL (NEGATIVE); NITRITE,URINE POSITIVE (NEGATIVE); PROTEIN,URINE NEGATIVE (NEGATIVE); URINE SPECIFIC GRAVITY 1.011
[2017-11-21 09:26] LABS: COLOR,URINE ORANGE
== END 2017-11-21 09:46 | disposition home or self-care (01) ==
LOC: ER 08:52
DX: N39.0 Urinary tract infection, site not specified (principal); F17.200 Nicotine dependence, unspecified, uncomplicated
CPT/HCPCS: 81001; 81025; 87086; 87088; 87186; 99283

== ENCOUNTER 2017-12-22 11:00 | Emergency (ER) | payer MEDICAID ==
[2017-12-22 11:17] VITALS: BP 116/68
[2017-12-22] MEDS ORDERED: CEPHALEXIN 500 MG CAPSULE PO ONE (11:28)
[2017-12-22] MEDS ORDERED: PHENAZOPYRIDINE HCL 200 MG TABLET PO ONE (11:28)
[2017-12-22] MEDS ORDERED: ONDANSETRON 4 MG TAB.RAPDIS PO ONE (11:28)
--- NOTE | 2017-12-22 11:30 | ER Document Report ---
HPI - HPI Patient complains to provider of: UTI Onset: Other - 2 days Onset/Duration: Persistent Quality of pain: Burning Pain Level: 4 Context: Patient reports a history of frequent urinary tract infections in which she has been told she likely has a urethral stricture. Patient reports frequency and dysuria. Patient does report some suprapubic tenderness and nausea. Patient denies any fever, vomiting or back pain. Associated Symptoms: Nausea, Other - Dysuria. denies: Fever, Vomiting Exacerbated by: Denies Relieved by: Denies Similar symptoms previously: Yes Recently seen / treated by doctor: No - ROS ROS below otherwise negative: Yes Systems Reviewed and Negative: Yes All other systems reviewed and negative - CONSTITUTIONAL Constitutional: DENIES: Fever, Chills - RESPIRATORY Respiratory: DENIES: Coughing - GASTROINTESTINAL Gastrointestinal: REPORTS: Abdominal Pain, Nausea. DENIES: Patient vomiting - URINARY Urinary: REPORTS: Dysuria, Frequency - REPRODUCTIVE Reproductive: DENIES: : - MUSCULOSKELETAL Musculoskeletal: DENIES: Back Pain - DERM Skin Color: Normal Skin Problems: None Past Medical History - General Information source: Patient - Social History Smoking Status: Current Every Day Smoker Smoking Education Provided: Yes Frequency of alcohol use: None Drug Abuse: None Occupation: None Family History: Arthritis, CAD, CVA, DM, Hyperlipidemia, Hypertension, Thyroid Disfunction - Past Medical History Cardiac Medical History: Denies: Hx Coronary Artery Disease, Hx Heart Attack, Hx Hypertension Pulmonary Medical History: Denies: Hx Asthma, Hx Bronchitis, Hx COPD, Hx Pneumonia Neurological Medical History: Denies: Hx Cerebrovascular Accident, Hx Seizures Endocrine Medical History: Reports: Hx Hypothyroidism Renal/ Medical History: Reports: Other - Endometriosis. Denies: Hx Peritoneal Dialysis GI Medical History: Reports: Hx Gastroesophageal Reflux Disease, Hx Ulcer, Hx Colonoscopy, Hx Endoscopy Musculoskeltal Medical History: Reports Hx Arthritis - IN R HAND, Reports Hx Musculoskeletal Trauma - fx finger Psychiatric Medical History: Reports: Hx Anxiety, Hx Depression Traumatic Medical History: Reports: Hx Fractures Past Surgical History: Reports: Hx Gynecologic Surgery - x5, Hx Orthopedic Surgery - Right hand - Immunizations Immunizations up to date: Yes Hx Diphtheria, Pertussis, Tetanus Vaccination: Yes - 07/21/2008 Hx Pneumococcal Vaccination: 07/21/00 Vertical Provider Document - CONSTITUTIONAL Agree With Documented VS: Yes Exam Limitations: No Limitations General Appearance: WD/WN, No Apparent Distress - INFECTION CONTROL TRAVEL OUTSIDE OF THE [place] IN LAST 30 DAYS: No - HEENT HEENT: Atraumatic, Normocephalic - NECK Neck: Normal Inspection - RESPIRATORY Respiratory: Breath Sounds Normal, No Respiratory Distress - CARDIOVASCULAR Cardiovascular: Regular Rate, Regular Rhythm - GI/ABDOMEN Gastrointestinal: Abdomen Soft, Abdomen Tender - BACK Back: Normal Inspection. negative: CVA Tenderness-Right - Suprapubic, CVA Tenderness-Left - MUSCULOSKELETAL/EXTREMETIES Musculoskeletal/Extremeties: MAEW - NEURO Level of Consciousness: Awake, Alert, Appropriate Motor/Sensory: No Motor Deficit - DERM Integumentary: Warm, Dry, No Rash Course - Re-evaluation Re-evalutation: 12/22/17 Review of patient's previous ER visits demonstrates patient does have a history of frequent UTIs that grew out E. coli that has been susceptible to cephalosporins in the past. Patient nontoxic in appearance, no concern for sepsis. Urine culture is pending. - Vital Signs Vital signs: Temp Pulse Resp BP Pulse Ox 98.7 F 80 18 116/68 96 12/22/17 11:16 12/22/17 11:16 12/22/17 11:16 12/22/17 11:16 12/22/17 11:16 Discharge - Discharge Clinical Impression: UTI (urinary tract infection) Qualifiers: Urinary tract infection type: site unspecified Hematuria presence: without hematuria Qualified Code(s): N39.0 - Urinary tract infection, site not specified Condition: Stable Disposition: HOME, SELF-CARE Instructions: Antinausea Medication ([facility]), Cephalexin ([facility]), Urinary Anesthetic Agent ([facility]), Urinary Tract Infection ([facility]) Additional Instructions: Return immediately for any new or worsening symptoms Followup with your primary care provider, call tomorrow to make a followup appointment Urine culture is pending, we will call if you need any different treatment Prescriptions: Cephalexin Monohydrate [Keflex 500 mg Capsule] 500 mg PO Q6H 5 Days capsule Ondansetron HCl [Zofran 4 mg Tablet] 1 - 2 tab PO Q6 PRN #10 tablet PRN Reason: Phenazopyridine HCl [Pyridium 200 mg Tablet] 200 mg PO TID #15 tablet Referrals: NEVAEH MCNEIL MD [Primary Care Provider] - Follow up as needed [facility] [Provider Group] - Follow up as needed [facility] [Provider Group] - Follow up as needed
== END 2017-12-22 11:39 | disposition home or self-care (01) ==
LOC: ER 11:00
DX: N39.0 Urinary tract infection, site not specified (principal); R35.0 Frequency of micturition; R30.0 Dysuria; R11.0 Nausea; R10.30 Lower abdominal pain, unspecified; F17.200 Nicotine dependence, unspecified, uncomplicated
CPT/HCPCS: 99283; 87086; 87088; 87186; S0119; J3490

== ENCOUNTER 2018-02-09 11:16 | Emergency (ER) | payer SELFPAY ==
[2018-02-09] MEDS ORDERED: NORMAL SALINE 1000 ML 1,000 ML IV ONE (11:50)
[2018-02-09 12:57] LABS: ABSOLUTE EOSINOPHILS # (AUTO) 0.2 10^3/uL (0.0-0.6); ABSOLUTE LYMPHOCYTES (AUTO) 2.4 10^3/uL (0.5-4.7); ABSOLUTE MONOCYTES (AUTO) 0.6 10^3/uL (0.1-1.4); ABSOLUTE NEUT (AUTO) 2.7 10^3/uL (1.7-8.2); BASOPHILS % (AUTO) 0.8 % (0-2); EOSINOPHILS % (AUTO) 3.7 % (0-6); HEMATOCRIT 37.5 % (36.0-47.0); HEMOGLOBIN 12.1 g/dL (12.0-15.5); LYMPHOCYTES % (AUTO) 40.6 % (13-45); MEAN CORPUSCULAR HEMOGLOBIN 27.8 pg (27.0-33.4); MEAN CORPUSCULAR HGB CONC 32.4 g/dL (32.0-36.0); MEAN CORPUSCULAR VOLUME 86 fl (80-97); MONOCYTES % (AUTO) 9.3 % (3-13); PLATELET COUNT 258 10^3/uL (150-450); RED BLOOD COUNT 4.36 10^6/uL (3.72-5.28); RED CELL DISTRIBUTION WIDTH 14.5 % (11.5-14.0); SEGMENTED NEUTROPHILS % (AUTO) 45.6 % (42-78); TOTAL CELLS COUNTED % (AUTO) 100 %; WHITE BLOOD COUNT 5.9 10^3/uL (4.0-10.5)
[2018-02-09 13:22] LABS: ALANINE AMINOTRANSFERASE 54 U/L (9-52); ALBUMIN 4.1 g/dL (3.5-5.0); ALKALINE PHOSPHATASE 73 U/L (38-126); ANION GAP 12 (5-19); ASPARTATE AMINO TRANSFERASE 44 U/L (14-36); BILIRUBIN,DIRECT 0.2 mg/dL (0.0-0.4); BILIRUBIN,TOTAL 0.3 mg/dL (0.2-1.3); BLOOD UREA NITROGEN 6 mg/dL (7-20); CALCIUM 10.5 mg/dL (8.4-10.2); CARBON DIOXIDE 27 mmol/L (22-30); CHLORIDE 105 mmol/L (98-107); GLUCOSE 100 mg/dL (75-110); LIPASE 51.6 U/L (23-300); POTASSIUM 4.4 mmol/L (3.6-5.0); SODIUM 143.9 mmol/L (137-145); TOTAL PROTEIN 7.9 g/dL (6.3-8.2)
--- NOTE | 2018-02-09 14:18 | RADIOLOGY REPORT (SQ) ---
EXAM DESCRIPTION: CT ABD/PELVIS WITH IV ONLY COMPLETED DATE/TIME: 02/09/2018 1:59 pm REASON FOR STUDY: rlq pain COMPARISON: None. TECHNIQUE: CT scan of the abdomen and pelvis performed using helical scanning technique with dynamic intravenous contrast injection. No oral contrast. Images reviewed with lung, soft tissue, and bone windows. Reconstructed coronal and sagittal MPR images reviewed. Delayed images for evaluation of the urinary system also acquired. All images stored on PACS. All CT scanners at this facility use dose modulation, iterative reconstruction, and/or weight based d osing when appropriate to reduce radiation dose to as low as reasonably achievable (ALARA). [facility]: Dose Right [facility]: CareDose [facility]: Dose Right [facility]: Teradose 4D [facility]: Vobile CONTRAST TYPE AND DOSE: contrast/concentration: Isovue 370.00 mg/ml; Total Contrast Delivered: 95.0 ml; Total Saline Delivered: 70.0 ml RENAL FUNCTION: GFR > 60. RADIATION DOSE: CT Rad equipment meets quality standard of care and radiation dose reduction techniq ues were employed. CTDIvol: 14.8 - 18.0 mGy. DLP: 1775 mGy-cm.. LIMITATIONS: None. FINDINGS: LOWER CHEST: No significant findings. No nodules or infiltrates. LIVER: Normal size. No masses. No dilated ducts. SPLEEN: Normal size. No focal lesions. PANCREAS: No masses. No significant calcifications. No adjacent inflammation or peripancreatic fluid collections. Pancreatic duct not dilated. GALLBLADDER: No identified stones by CT criteria. No inflammatory changes to suggest cholecystitis. ADRENAL GLANDS: No significant masses or asymmetry. RIGHT KIDNEY AND URETER: No solid masses. No significant calcifications. No hydronephrosis or hyd roureter. LEFT KIDNEY AND URETER: No solid masses. No significant calcifications. No hydronephrosis or hydr oureter. AORTA AND VESSELS: No aneurysm. No dissection. Renal arteries, SMA, celiac without stenosis. RETROPERITONEUM: No retroperitoneal adenopathy, hemorrhage or masses. BOWEL AND PERITONEAL CAVITY: No masses or inflammatory changes. No free fluid or peritoneal masses. APPENDIX: Normal. PELVIS: No mass. No free fluid. Normal bladder. ABDOMINAL WALL: Umbilical hernia containing fat. BONES: No significant or acute findings. OTHER: No other significant finding. IMPRESSION: No acute findings. TECHNICAL DOCUMENTATION: JOB ID: [id number] Quality ID # [id number]: Final reports with documentation of one or more dose reduction techniques (e.g., Au tomated exposure control, adjustment of the mA and/or kV according to patient size, use of iterative reconstruction technique) 2010 [employer]- All Rights Reserved Reading location - IP/workstation name: [email or web address]
[2018-02-09 14:56] VITALS: BP 126/84
--- NOTE | 2018-02-09 15:05 | ER Document Report ---
ED General - General Chief Complaint: Abdominal Pain Stated Complaint: RECTAL BLEEDING, ABDOMINAL PAIN Time Seen by Provider: 02/09/18 11:43 TRAVEL OUTSIDE OF THE [place] IN LAST 30 DAYS: No - HPI Patient complains to provider of: Right lower quadrant pain rectal bleeding Notes: Patient coming in for right lower quadrant pain states started in the last 24 hours. States no nausea no vomiting. No exacerbating or relieving factors of the pain. Patient is more concerned is that today she went to the bathroom and having a bowel movement have slight amount of bright red blood on the toilet paper tissue than states she also saw some clots in the tolerable. Patient states last colonoscopy endoscopy was approximately greater than 10 years ago. Patient denies any other past medical history denies any fevers chills nausea vomiting diarrhea. Denies any trauma denies any recent antibiotics. Denies any travel outside state or outside the country. - Related Data Allergies/Adverse Reactions: No Known Allergies Allergy (Verified 02/09/18 11:44) Past Medical History - Social History Smoking Status: Current Every Day Smoker Chew tobacco use (# tins/day): No Frequency of alcohol use: None Drug Abuse: None Family History: Arthritis, CAD, CVA, DM, Hyperlipidemia, Hypertension, Thyroid Disfunction Patient has suicidal ideation: No Patient has homicidal ideation: No - Past Medical History Cardiac Medical History: Denies: Hx Coronary Artery Disease, Hx Heart Attack, Hx Hypertension Pulmonary Medical History: Denies: Hx Asthma, Hx Bronchitis, Hx COPD, Hx Pneumonia Neurological Medical History: Denies: Hx Cerebrovascular Accident, Hx Seizures Endocrine Medical History: Reports: Hx Hypothyroidism Renal/ Medical History: Denies: Hx Peritoneal Dialysis GI Medical History: Reports: Hx Gastroesophageal Reflux Disease, Hx Ulcer, Hx Colonoscopy, Hx Endoscopy Musculoskeletal Medical History: Reports Hx Arthritis - IN R HAND, Reports Hx Musculoskeletal Trauma - fx finger Psychiatric Medical History: Reports: Hx Anxiety, Hx Depression Traumatic Medical History: Reports: Hx Fractures Past Surgical History: Reports: Hx Gynecologic Surgery - x5, Hx Orthopedic Surgery - Right hand - Immunizations Immunizations up to date: Yes Hx Diphtheria, Pertussis, Tetanus Vaccination: Yes - 07/21/2008 Hx Pneumococcal Vaccination: 07/21/00 Review of Systems - Review of Systems Constitutional: No symptoms reported EENT: No symptoms reported Cardiovascular: No symptoms reported Respiratory: No symptoms reported Gastrointestinal: Abdominal pain, Rectal bleeding Genitourinary: No symptoms reported Female Genitourinary: No symptoms reported Musculoskeletal: No symptoms reported Skin: No symptoms reported Hematologic/Lymphatic: No symptoms reported Neurological/Psychological: No symptoms reported -: Yes All other systems reviewed and negative Physical Exam - Vital signs Vitals: Temp Pulse Resp BP Pulse Ox 98 F 78 18 129/77 H 100 02/09/18 11:22 02/09/18 11:22 02/09/18 11:22 02/09/18 11:22 02/09/18 11:22 Interpretation: Normal - General General appearance: Appears well, Alert - HEENT Head: Normocephalic, Atraumatic Eyes: Normal Pupils: PERRL - Respiratory Respiratory status: No respiratory distress Chest status: Nontender Breath sounds: Normal Chest palpation: Normal - Cardiovascular Rhythm: Regular Heart sounds: Normal auscultation Murmur: No - Abdominal Inspection: Normal Distension: No distension Bowel sounds: Normal Tenderness: Nontender Organomegaly: No organomegaly - Rectal Hemorrhoids: External Notes: Small hemorrhoid formation rectal examination does reveal on the guaiac card a very small area that was blue only in 1 window area was less than a few millimeters big. Not consistent with a massive GI bleed. - Back Back: Normal, Nontender - Extremities General upper extremity: Normal inspection, Nontender, Normal color, Normal ROM , Normal temperature General lower extremity: Normal inspection, Nontender, Normal color, Normal ROM , Normal temperature, Normal weight bearing. No: Anna's sign - Neurological Neuro grossly intact: Yes Cognition: Normal Orientation: AAOx4 Wallace Coma Scale Eye Opening: Spontaneous Wallace Coma Scale Verbal: Oriented Levi Coma Scale Motor: Obeys Commands Levi Coma Scale Total: 15 Speech: Normal Motor strength normal: LUE, RUE, LLE, RLE Sensory: Normal - Psychological Associated symptoms: Normal affect, Normal mood - Skin Skin Temperature: Warm Skin Moisture: Dry Skin Color: Normal Course - Re-evaluation Re-evalutation: 02/09/18 20:13 Laboratory studies not revealing critical pathology. This CAT scan also is not revealing critical pathology. At this time do believe patient is stable for outpatient follow-up. Patient agrees with this assessment encourage patient to follow-up with GI for. Patient will be discharged home. The patient presents with abdominal pain without signs of peritonitis or other life-threatening or serious etiology. The patient appears stable for discharge and has been instructed to return immediately if the symptoms worsen in any way, or in 8- 12hr if not improved for re-evaluation. The patient has been instructed to return if the symptoms worsen or change in any way. - Vital Signs Vital signs: Temp Pulse Resp BP Pulse Ox 97.8 F 71 17 126/84 H 99 02/09/18 14:55 02/09/18 14:55 02/09/18 14:55 02/09/18 14:55 02/09/18 14:55 - Laboratory Result Diagrams: 02/09/18 12:20 02/09/18 12:20 Laboratory results interpreted by me: 02/09/18 02/09/18 12:20 12:20 RDW 14.5 H BUN 6 L Calcium 10.5 H AST 44 H ALT 54 H Discharge - Discharge Clinical Impression: Acute hemorrhoid Abdominal pain Qualifiers: Abdominal location: unspecified location Qualified Code(s): R10.9 - Unspecified abdominal pain Condition: Good Disposition: HOME, SELF-CARE Instructions: Abdominal Pain ([facility]), Gastroenterology, HC Hemorrhoid Cream ([facility]) , Hemorrhoids ([facility]) Additional Instructions: Laboratory values today and CAT scan did not show any signs of significant pathology causing your pain. Nose no signs of infection no signs of acute appendicitis no signs of any infection that require antibiotics. I will highly recommend she follow-up with your primary care physician for further evaluation. Return to ER symptoms worsen Prescriptions: Dicyclomine HCl [Bentyl 20 mg Tablet] 20 mg PO QID #30 tablet Ondansetron [Zofran Odt] 4 mg PO Q6 PRN #30 tab.rapdis PRN Reason: For Nausea/Vomiting Phenyleph/Pramoxin/Glycr/W.pet [Preparation H Cream] 26 gm RC BID #1 tube Tramadol HCl [Ultram 50 mg Tablet] 50 mg PO ASDIR PRN #14 tablet PRN Reason: Forms: Return to Work Referrals: NEVAEH MCNEIL MD [Primary Care Provider] - Follow up as needed
== END 2018-02-09 15:09 | disposition home or self-care (01) ==
LOC: ER 11:16
DX: R10.31 Right lower quadrant pain (principal); K64.9 Unspecified hemorrhoids; K62.5 Hemorrhage of anus and rectum; F17.200 Nicotine dependence, unspecified, uncomplicated; Z87.19 Personal history of other diseases of the digestive system
CPT/HCPCS: 99284; 96360; 36415; 83690; 84703; 85025; 80053; 74177; J7030

== ENCOUNTER 2018-03-10 08:39 | Emergency (ER) | payer SELFPAY ==
[2018-03-10 09:24] LABS: APPEARANCE,URINE CLOUDY; BILIRUBIN,URINE NEGATIVE (NEGATIVE); COLOR,URINE AMBER; GLUCOSE, URINE NEGATIVE (NEGATIVE); KETONES,URINE NEGATIVE (NEGATIVE); LEUKOCYTE ESTERASE,URINE SMALL (NEGATIVE); NITRITE,URINE POSITIVE (NEGATIVE); PROTEIN,URINE 30 mg/dL (NEGATIVE); URINE SPECIFIC GRAVITY 1.015
[2018-03-10] MEDS ORDERED: CEFTRIAXONE INJ 1000 MG VIAL IM ONE (10:02)
--- NOTE | 2018-03-10 10:09 | ER Document Report ---
ED GI/ - General Chief Complaint: Urinary Problem Stated Complaint: PELVIC PAIN, PAIN WITH URINATION Time Seen by Provider: 03/10/18 09:17 Information source: Patient Notes: Patient is a 32-year-old female that has had some urinary frequency and hesitancy starting yesterday. She states a mild suprapubic discomfort only with urination. She denies any nausea, vomiting, flank pain, or fevers. Patient has been here almost monthly for urinary tract infections. The last grew Klebsiella and the previous two E. coli. She states that she was told she has a urethral stricture from previous injury when she was a child on a handlebar injury and has a follow-up scheduled with [facility] urology. TRAVEL OUTSIDE OF THE [place] IN LAST 30 DAYS: No - HPI Patient complains to provider of: Other - See above Onset: Other - See above Timing/Duration: Gradual Quality of pain: Burning Severity at maximum: Mild Severity in ED: Mild Pain Level: 2 Location: Other - See above Vaginal bleeding (Compared to normal period): None Sexual history: Active Associated symptoms: Other - See above Exacerbated by: Denies Relieved by: Denies Similar symptoms previously: No Recently seen / treated by doctor: No - Related Data Allergies/Adverse Reactions: No Known Allergies Allergy (Verified 02/09/18 11:44) Past Medical History - General Information source: Patient - Social History Smoking Status: Unknown if Ever Smoked Cigarette use (# per day): No Chew tobacco use (# tins/day): No Smoking Education Provided: No Frequency of alcohol use: None Family History: Arthritis, CAD, CVA, DM, Hyperlipidemia, Hypertension, Thyroid Disfunction Patient has suicidal ideation: No Patient has homicidal ideation: No - Past Medical History Cardiac Medical History: Denies: Hx Coronary Artery Disease, Hx Heart Attack, Hx Hypertension Pulmonary Medical History: Denies: Hx Asthma, Hx Bronchitis, Hx COPD, Hx Pneumonia Neurological Medical History: Denies: Hx Cerebrovascular Accident, Hx Seizures Endocrine Medical History: Reports: Hx Hypothyroidism Renal/ Medical History: Denies: Hx Peritoneal Dialysis GI Medical History: Reports: Hx Gastroesophageal Reflux Disease, Hx Ulcer, Hx Colonoscopy, Hx Endoscopy Musculoskeletal Medical History: Reports Hx Arthritis - IN R HAND, Reports Hx Musculoskeletal Trauma - fx finger Psychiatric Medical History: Reports: Hx Anxiety, Hx Depression Traumatic Medical History: Reports: Hx Fractures Past Surgical History: Reports: Hx Gynecologic Surgery - x5, Hx Orthopedic Surgery - Right hand - Immunizations Immunizations up to date: Yes Hx Diphtheria, Pertussis, Tetanus Vaccination: Yes - 07/21/2008 Hx Pneumococcal Vaccination: 07/21/00 Physical Exam - Vital signs Vitals: Temp Pulse Resp BP Pulse Ox 98.0 F 97 14 129/73 H 96 03/10/18 08:51 03/10/18 08:51 03/10/18 08:51 03/10/18 08:51 03/10/18 08:51 Interpretation: Normal Notes: Reviewed vital signs and nursing note as charted by RN. CONSTITUTIONAL: Alert and oriented and responds appropriately to questions. Well -appearing; well-nourished HEAD: Normocephalic; atraumatic EYES: Sclerae non-icteric ENT: Pharynx without lesions noted NECK: Supple without meningismus; non-tender CARD: Regular rate and rhythm; no murmurs RESP: Normal chest excursion without splinting or tachypnea; breath sounds clear and equal bilaterally ABD/GI: Normal bowel sounds; non-distended; soft, non-tender BACK: The back appears normal and is non-tender to palpation, there is no CVA tenderness EXT: Normal ROM in all joints; non-tender to palpation; no edema SKIN: No acute lesions noted NEURO: Moves all extremities equally; Motor and sensory function intact PSYCH: The patient's mood and manner are appropriate. Grooming and personal hygiene are appropriate. Course - Re-evaluation Re-evalutation: 03/10/18 10:08 Given the above history and physical examination I will order urinalysis and test. Given the frequent urinary tract infections with some dysuria, with a possible urethral stricture, I will perform a pelvic examination. I will provide a gram of Rocephin prior to discharge. 03/10/18 11:27 Pelvic examination shows no obvious external or internal lesions, no cervical motion tenderness present. No adnexal masses or tenderness. Post void residual is less than 10 cc of urine. 03/10/18 11:45 Still no tenderness. Pelvic examination laboratory profiles as recorded. I have provided Diflucan. Patient will be discharged home with strict return precautions and follow-up with [facility] urology as instructed. - Vital Signs Vital signs: Temp Pulse Resp BP Pulse Ox 98.0 F 97 14 129/73 H 96 03/10/18 08:51 03/10/18 08:51 03/10/18 08:51 03/10/18 08:51 03/10/18 08:51 - Laboratory Laboratory results interpreted by me: 03/10/18 08:58 Urine Protein 30 H Urine Blood SMALL H Urine Nitrite POSITIVE H Urine Urobilinogen 4.0 H Ur Leukocyte Esterase SMALL H Urine Ascorbic Acid 40 H Discharge - Discharge Clinical Impression: UTI (urinary tract infection) Qualifiers: Urinary tract infection type: acute cystitis Hematuria presence: without hematuria Qualified Code(s): N30.00 - Acute cystitis without hematuria Condition: Good Disposition: HOME, SELF-CARE Instructions: Urinary Tract Infection ([facility]) Prescriptions: Ciprofloxacin HCl [Cipro 500 mg Tablet] 500 mg PO BID 10 Days #20 tablet Promethazine HCl [Phenergan 25 mg Tablet] 25 mg PO Q6H PRN #15 tablet PRN Reason:
[2018-03-10] MEDS ORDERED: LIDOCAINE 1% INJ-PF (10 MG/ML) 30 ML SDV ONE (10:44)
[2018-03-10 11:33] LABS: RBCS (WET MOUNT) NO RBCS SEEN; T.VAGINALIS (WET MOUNT) NO TRICHOMONAS SEEN; WBCS (WET MOUNT) NO WBCS SEEN; YEAST (WET MOUNT) YEAST SEEN
[2018-03-10] MEDS ORDERED: FLUCONAZOLE 100 MG TABLET PO ONE (11:45)
[2018-03-10 12:03] VITALS: BP 115/77
[2018-03-10 13:03] LABS: CHLAM PCR NOT DETECTED (NOT DETECT); GON PCR NOT DETECTED (NOT DETECT)
== END 2018-03-10 12:22 | disposition home or self-care (01) ==
LOC: ER 08:39
DX: N30.00 Acute cystitis without hematuria (principal); R35.0 Frequency of micturition; R39.11 Hesitancy of micturition; R10.30 Lower abdominal pain, unspecified
CPT/HCPCS: 99283; 96372; 87210; 81001; 87491; 87591; J3490; J0696

== ENCOUNTER 2018-04-13 11:07 | Emergency (ER) | payer SELFPAY ==
[2018-04-13 12:56] LABS: ABSOLUTE EOSINOPHILS # (AUTO) 0.1 10^3/uL (0.0-0.6); ABSOLUTE LYMPHOCYTES (AUTO) 1.9 10^3/uL (0.5-4.7); ABSOLUTE MONOCYTES (AUTO) 0.5 10^3/uL (0.1-1.4); ABSOLUTE NEUT (AUTO) 3.5 10^3/uL (1.7-8.2); APPEARANCE,URINE SLIGHTLY-CLOUDY; BASOPHILS % (AUTO) 0.4 % (0-2); BILIRUBIN,URINE NEGATIVE (NEGATIVE); EOSINOPHILS % (AUTO) 1.7 % (0-6); GLUCOSE, URINE NEGATIVE (NEGATIVE); HEMATOCRIT 36.9 % (36.0-47.0); HEMOGLOBIN 12.3 g/dL (12.0-15.5); KETONES,URINE NEGATIVE (NEGATIVE); LEUKOCYTE ESTERASE,URINE TRACE (NEGATIVE); LYMPHOCYTES % (AUTO) 31.6 % (13-45); MEAN CORPUSCULAR HEMOGLOBIN 29.1 pg (27.0-33.4); MEAN CORPUSCULAR HGB CONC 33.3 g/dL (32.0-36.0); MEAN CORPUSCULAR VOLUME 87 fl (80-97); MONOCYTES % (AUTO) 8.5 % (3-13); NITRITE,URINE NEGATIVE (NEGATIVE); PLATELET COUNT 287 10^3/uL (150-450); PROTEIN,URINE NEGATIVE (NEGATIVE); RED BLOOD COUNT 4.23 10^6/uL (3.72-5.28); RED CELL DISTRIBUTION WIDTH 15.7 % (11.5-14.0); SEGMENTED NEUTROPHILS % (AUTO) 57.8 % (42-78); TOTAL CELLS COUNTED % (AUTO) 100 %; URINE SPECIFIC GRAVITY 1.016; UROBILINOGEN,URINE NEGATIVE mg/dL (<2.0)
[2018-04-13 12:57] LABS: COLOR,URINE YELLOW
[2018-04-13 13:14] LABS: BLOOD UREA NITROGEN 8 mg/dL (7-20); CALCIUM 10.2 mg/dL (8.4-10.2); GLUCOSE 92 mg/dL (75-110)
[2018-04-13 13:15] LABS: ALANINE AMINOTRANSFERASE 37 U/L (9-52); ALBUMIN 4.1 g/dL (3.5-5.0); ALKALINE PHOSPHATASE 52 U/L (38-126); ANION GAP 6 (5-19); ASPARTATE AMINO TRANSFERASE 36 U/L (14-36); BILIRUBIN,DIRECT 0.4 mg/dL (0.0-0.4); BILIRUBIN,TOTAL 0.4 mg/dL (0.2-1.3); CARBON DIOXIDE 28 mmol/L (22-30); CHLORIDE 104 mmol/L (98-107); LIPASE 40.5 U/L (23-300); POTASSIUM 4.4 mmol/L (3.6-5.0); SODIUM 138.1 mmol/L (137-145); TOTAL PROTEIN 7.9 g/dL (6.3-8.2)
--- NOTE | 2018-04-13 15:41 | RADIOLOGY REPORT (SQ) ---
EXAM DESCRIPTION: U/S OB TRANSVAG W/DOPPLER COMPLETED DATE/TIME: 04/13/2018 3:10 pm REASON FOR STUDY: +preg bleeding COMPARISON: None. TECHNIQUE: Transvaginal static and realtime grayscale images acquired of the pelvis. Additional nimo cted spectral and color Doppler images recorded. All images stored on PACs. bHC,[id number] CLINICAL DATES: ABDIRAHMAN : 12/06/2020. EGA: 6 weeks 1 day LIMITATIONS: None. FINDINGS: FETUS: Living intrauterine . ULTRASOUND EGA: 6 weeks 3 days ULTRASOUND ABDIRAHMAN: 12/04/2018 CRL: 5.8 mm FHR: 120 beats per minute. ADITI: Adequate amount. SUBCHORIONIC BLEED: A 1.4 cm x 0.8 cm subchorionic hemorrhage. UTERUS: The uterus measures 6.7 x 6.4 x 4.4 cm. No masses. No anomalies. CERVICAL LENGTH: 2.1 cm Closed. RIGHT ADNEXA: Not visualized. LEFT ADNEXA: The left ovary measures 4.0 x 1.8 x 1.5 cm. Normal ovary with normal vascular flow. No adnexal free fluid. No adnexal masses. FREE FLUID: None. OTHER: No other significant finding. IMPRESSION: LIVING INTRAUTERINE . EGA: 6 weeks 3 days Trimester of : First - 0 to 13 weeks. TECHNICAL DOCUMENTATION: JOB ID: [id number] [employer]- All Rights Reserved rev Reading location - IP/workstation name: [email or web address]
--- NOTE | 2018-04-13 15:53 | ER Document Report ---
ED General - General Chief Complaint: Vag Bleeding, +preg <12wks Stated Complaint: VAGINAL BLEEDING Time Seen by Provider: 04/13/18 12:06 TRAVEL OUTSIDE OF THE [place] IN LAST 30 DAYS: No - HPI Patient complains to provider of: Vaginal bleeding positive Notes: Patient coming in for evaluation of vaginal bleeding positive . Patient has a bicornuate uterus and is a . Patient states started lightly bleeding today and is still wearing the same pad. Patient denies any recent intercourse denies any trauma. Patient denies any abdominal pain. Patient resting comfortably upon my evaluation - Related Data Allergies/Adverse Reactions: No Known Allergies Allergy (Verified 04/13/18 11:08) Past Medical History - Social History Smoking Status: Current Every Day Smoker Chew tobacco use (# tins/day): No Frequency of alcohol use: None Drug Abuse: None Family History: Arthritis, CAD, CVA, DM, Hyperlipidemia, Hypertension, Thyroid Disfunction Patient has suicidal ideation: No Patient has homicidal ideation: No - Past Medical History Cardiac Medical History: Denies: Hx Coronary Artery Disease, Hx Heart Attack, Hx Hypertension Pulmonary Medical History: Denies: Hx Asthma, Hx Bronchitis, Hx COPD, Hx Pneumonia Neurological Medical History: Denies: Hx Cerebrovascular Accident, Hx Seizures Endocrine Medical History: Reports: Hx Hypothyroidism Renal/ Medical History: Denies: Hx Peritoneal Dialysis GI Medical History: Reports: Hx Gastroesophageal Reflux Disease, Hx Ulcer, Hx Colonoscopy, Hx Endoscopy Musculoskeletal Medical History: Reports Hx Arthritis - IN R HAND, Reports Hx Musculoskeletal Trauma - fx finger Psychiatric Medical History: Reports: Hx Anxiety, Hx Depression Traumatic Medical History: Reports: Hx Fractures Past Surgical History: Reports: Hx Gynecologic Surgery - x5, Hx Orthopedic Surgery - Right hand - Immunizations Immunizations up to date: Yes Hx Diphtheria, Pertussis, Tetanus Vaccination: Yes - 07/21/2008 Hx Pneumococcal Vaccination: 07/21/00 Review of Systems - Review of Systems Constitutional: No symptoms reported EENT: No symptoms reported Cardiovascular: No symptoms reported Respiratory: No symptoms reported Gastrointestinal: No symptoms reported Genitourinary: No symptoms reported Female Genitourinary: Vaginal bleeding Musculoskeletal: No symptoms reported Skin: No symptoms reported Hematologic/Lymphatic: No symptoms reported Neurological/Psychological: No symptoms reported -: Yes All other systems reviewed and negative Physical Exam - Vital signs Vitals: Temp Pulse Resp BP Pulse Ox 97.9 F 92 14 119/58 L 99 04/13/18 11:11 04/13/18 11:11 04/13/18 11:11 04/13/18 11:11 04/13/18 11:11 Interpretation: Normal - General General appearance: Appears well, Alert - HEENT Head: Normocephalic, Atraumatic Eyes: Normal Pupils: PERRL - Respiratory Respiratory status: No respiratory distress Chest status: Nontender Breath sounds: Normal Chest palpation: Normal - Cardiovascular Rhythm: Regular Heart sounds: Normal auscultation Murmur: No - Abdominal Inspection: Normal Distension: No distension Bowel sounds: Normal Tenderness: Nontender Organomegaly: No organomegaly - Back Back: Normal, Nontender - Extremities General upper extremity: Normal inspection, Nontender, Normal color, Normal ROM , Normal temperature General lower extremity: Normal inspection, Nontender, Normal color, Normal ROM , Normal temperature, Normal weight bearing. No: Anna's sign - Neurological Neuro grossly intact: Yes Cognition: Normal Orientation: AAOx4 Levi Coma Scale Eye Opening: Spontaneous Levi Coma Scale Verbal: Oriented [place] Coma Scale Motor: Obeys Commands Levi Coma Scale Total: 15 Speech: Normal Motor strength normal: LUE, RUE, LLE, RLE Sensory: Normal - Psychological Associated symptoms: Normal affect, Normal mood - Skin Skin Temperature: Warm Skin Moisture: Dry Skin Color: Normal Course - Re-evaluation Re-evalutation: 04/13/18 19:50 Ultrasound shows 6 weeks intrauterine gestation no other abnormality. Discussed with patient likelihood still possibly a miscarriage possibly 10-20% greater than a woman not bleeding. Patient is to observe pelvic rest follow-up with her [employer] patient states understanding - Vital Signs Vital signs: Temp Pulse Resp BP Pulse Ox 98.3 F 89 16 122/65 99 04/13/18 16:03 04/13/18 16:03 04/13/18 16:03 04/13/18 16:03 04/13/18 16:03 - Laboratory Result Diagrams: 04/13/18 12:20 04/13/18 12:20 Laboratory results interpreted by me: 04/13/18 04/13/18 04/13/18 12:20 12:20 12:20 RDW 15.7 H Beta HCG, Quant 61944.00 H Urine Blood SMALL H Ur Leukocyte Esterase TRACE H Urine Ascorbic Acid 40 H Discharge - Discharge Clinical Impression: Vaginal bleeding during Disposition: HOME, SELF-CARE Instructions: Bleeding During Early ([facility]), ([facility]) Additional Instructions: Ultrasound shows an IUP approximately 6 weeks. Laboratory studies do not show any critical pathology please follow-up with your primary care physician and OB/ INSURANCE COUNSEL for further evaluation. Observe pelvic rest nothing inside the vagina no sex no toys no tampons.
[2018-04-13 16:04] VITALS: BP 122/65
== END 2018-04-13 16:08 | disposition home or self-care (01) ==
LOC: ER 11:07
DX: O46.91 Antepartum hemorrhage, unspecified, first trimester (principal); O99.331 Smoking (tobacco) complicating pregnancy, first trimester; Z3A.00 Weeks of gestation of pregnancy not specified
CPT/HCPCS: 36415; 76817; 80053; 81001; 83690; 84702; 85025; 86900; 86901; 93976; 99284

== ENCOUNTER → 2018-04-16 | Outpatient (CLI) | payer MEDICAID | LOC: OCH 07:51 | PROVIDERS: ATTEND Nurse Practitioner | DX: O02.0 Blighted ovum and nonhydatidiform mole (principal); Z3A.00 Weeks of gestation of pregnancy not specified | CPT/HCPCS: 36415; 84702 ==

== ENCOUNTER 2018-04-18 12:04 | Emergency (ER) | payer MEDICAID ==
[2018-04-18] MEDS ORDERED: ONDANSETRON 4 MG TAB.RAPDIS PO ONE (12:42)
--- NOTE | 2018-04-18 12:47 | ER Document Report ---
ED GI/ - General Chief Complaint: Vaginal Bleeding Stated Complaint: VAGIAL BLEEDING Time Seen by Provider: 04/18/18 12:36 Mode of Arrival: Ambulatory Information source: Patient Notes: Chief complaint: Vaginal bleeding History of complain:( obtained from----patient) 32 years old female with first trimester , last Friday had an episode of vaginal bleeding at that time she had an ultrasound, ultrasound showed subchorionic hemorrhage. The bleeding stopped for the next 2 days and started again today therefore she presented to the ED. With slight abdominal cramp. Nauseous. No fever chills or other constitutional symptoms. She is a high risk so far had 3 pregnancies with 2 miscarriage, this is her third . She has a bicone uterus Onset: Duration: Severity: Quality: Context: Exacerbating factor and relieving factors: REVIEW OF SYSTEMS: CONSTITUTIONAL : Denies fever, chills, or sweats. Denies recent illness. EENT: Denies eye, ear, throat, or mouth pain or symptoms. Denies nasal or sinus congestion or discharge. Denies throat, tongue, or mouth swelling or difficulty swallowing. CARDIOVASCULAR: Denies chest pain. Denies palpitations or racing or irregular heart beat. Denies ankle edema. RESPIRATORY: Denies cough, cold, or chest congestion. Denies shortness of breath, difficulty breathing, or wheezing. GASTROINTESTINAL: Denies distention. Denies nausea, vomiting, or diarrhea. Denies blood in vomitus, stools, or per rectum. Denies black, tarry stools. Denies constipation. GENITOURINARY: Denies difficulty urinating, painful urination, burning, frequency, blood in urine, or discharge. FEMALE GENITOURINARY: Denies vaginal bleeding, heavy or abnormal periods, irregular periods. Denies vaginal discharge or odor. MUSCULOSKELETAL: Denies back or neck pain or stiffness. Denies joint pain or swelling. SKIN: Denies rash, lesions or sores. HEMATOLOGIC : Denies easy bruising or bleeding. LYMPHATIC: Denies swollen, enlarged glands. NEUROLOGICAL: Denies confusion or altered mental status. Denies passing out or loss of consciousness. Denies dizziness or lightheadedness. Denies headache. Denies weakness or paralysis or loss of use of either side. Denies problems with gait or speech. Denies sensory loss, numbness, or tingling. Denies seizures. PSYCHIATRIC: Denies anxiety or stress. Denies depression, suicidal ideation, or homicidal ideation. ALL OTHER SYSTEMS REVIEWED AND NEGATIVE. PHYSICAL EXAMINATION: GENERAL: Well-appearing, well-nourished and in no acute distress. HEAD: Atraumatic, normocephalic. EYES: Pupils equal round and reactive to light, extraocular movements intact, conjunctiva are normal. ENT: Nares patent, oropharynx clear without exudates. Moist mucous membranes. NECK: Normal range of motion, supple without lymphadenopathy LUNGS: Breath sounds clear to auscultation bilaterally and equal. No wheezes rales or rhonchi. HEART: Regular rate and rhythm without murmurs ABDOMEN: Soft, nontender, nondistended abdomen. No guarding, no rebound. No masses appreciated. Examination of genitals-deferred Musculoskeletal: Normal range of motion, no pitting or edema. No cyanosis. NEUROLOGICAL: Cranial nerves grossly intact. Normal speech, normal gait. Normal sensory, motor exams PSYCH: Normal mood, normal affect. SKIN: Warm, Dry, normal turgor, no rashes or lesions noted. Dictation was performed using [employer] voice recognition software TRAVEL OUTSIDE OF THE [place] IN LAST 30 DAYS: No - HPI Notes: 04/18/18 12:47 Dictated - Related Data Allergies/Adverse Reactions: No Known Allergies Allergy (Verified 04/18/18 12:04) Past Medical History - Social History Smoking Status: Current Every Day Smoker Frequency of alcohol use: None Drug Abuse: None, Bath salts Lives with: Family Family History: Arthritis, CAD, CVA, DM, Hyperlipidemia, Hypertension, Thyroid Disfunction Patient has suicidal ideation: No Patient has homicidal ideation: No - Past Medical History Cardiac Medical History: Denies: Hx Coronary Artery Disease, Hx Heart Attack, Hx Hypertension Pulmonary Medical History: Denies: Hx Asthma, Hx Bronchitis, Hx COPD, Hx Pneumonia Neurological Medical History: Denies: Hx Cerebrovascular Accident, Hx Seizures Endocrine Medical History: Reports: Hx Hypothyroidism Renal/ Medical History: Denies: Hx Peritoneal Dialysis GI Medical History: Reports: Hx Gastroesophageal Reflux Disease, Hx Ulcer, Hx Colonoscopy, Hx Endoscopy Musculoskeletal Medical History: Reports Hx Arthritis - IN R HAND, Reports Hx Musculoskeletal Trauma - fx finger Psychiatric Medical History: Reports: Hx Anxiety, Hx Depression Traumatic Medical History: Reports: Hx Fractures Past Surgical History: Reports: Hx Gynecologic Surgery - x5, Hx Orthopedic Surgery - Right hand - Immunizations Immunizations up to date: Yes Hx Diphtheria, Pertussis, Tetanus Vaccination: Yes - 07/21/2008 Hx Pneumococcal Vaccination: 07/21/00 Review of Systems - Review of Systems Notes: Dictated Physical Exam - Vital signs Vitals: Temp Pulse Resp BP Pulse Ox 97.4 F 70 14 136/47 H 99 04/18/18 12:12 04/18/18 12:12 04/18/18 12:12 04/18/18 12:12 04/18/18 12:12 - Notes Notes: Dictated Course - Vital Signs Vital signs: Temp Pulse Resp BP Pulse Ox 97.4 F 70 14 136/47 H 99 04/18/18 12:12 04/18/18 12:12 04/18/18 12:12 04/18/18 12:12 04/18/18 12:12 - Laboratory Result Diagrams: 04/18/18 13:13 Laboratory results interpreted by me: 04/18/18 04/18/18 13:13 13:13 RDW 15.7 H Beta HCG, Quant 89923.00 H - Diagnostic Test Radiology reviewed: Reports reviewed - Ultrasound shows living intrauterine of 7 weeks Discharge - Discharge Clinical Impression: Threatened affecting intrauterine Condition: Fair Disposition: HOME, SELF-CARE Instructions: Threatened Abortions ( Patients) Prescriptions: Promethazine HCl 25 mg RC TID #30 supp.rect Referrals: ANTHONY HEAD, DIRECTOR OF ESTATE [Primary Care Provider] - Follow up as needed
--- NOTE | 2018-04-18 13:34 | RADIOLOGY REPORT (SQ) ---
EXAM DESCRIPTION: U/S 1TRIMESTER/1GEST W/DOPPLER COMPLETED DATE/TIME: 04/18/2018 1:19 pm REASON FOR STUDY: Abdominal pain and vaginal bleeding COMPARISON: 04/13/2018 TECHNIQUE: Transvaginal and transabdominal static and realtime grayscale images acquired of the pelv is. Additional selected spectral and color Doppler images recorded. All images stored on PACs. bHCG: Not available. CLINICAL DATES: 6 weeks 6 days LIMITATIONS: None. FINDINGS: FETUS: Single Living intrauterine . ULTRASOUND EGA: 7 weeks 0 days ULTRASOUND ABDIRAHMAN: 12/05/2018 EFW: Not applicable less than 20 weeks CRL: 1.1 cm FHR: 126 beats per minute. SURVEY: No visualized anomalies AMNIOTIC FLUID: Adequate amount PLACENTA: Not yet developed due to early gestation SUBCHORIONIC BLEED: Yes SIZE OF BLEED: 2.6 x 1.6 x 1.3 cm, previously this measured 1.4 cm in greatest dimension. 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 CERVICAL LENGTH: 4.0 cm Closed. RIGHT ADNEXA: Normal ovary with normal vascular flow. No adnexal free fluid. No adnexal masses. LEFT ADNEXA: Normal ovary with normal vascular flow. No adnexal free fluid. No adnexal masses. FREE FLUID: None. OTHER: No other significant finding. IMPRESSION: LIVING INTRAUTERINE . EGA 7 weeks 0 days SUBCHORIONIC BLEED: Yes SIZE OF BLEED: 2.6 x 1.6 x 1.3 cm, previously this measured 1.4 cm in greatest dimension. Trimester of : First - 0 to 13 weeks. TECHNICAL DOCUMENTATION: JOB ID: [id number] [email or web address]- All Rights Reserved Reading location - IP/workstation name: [email or web address]
[2018-04-18 13:41] LABS: ABSOLUTE EOSINOPHILS # (AUTO) 0.2 10^3/uL (0.0-0.6); ABSOLUTE LYMPHOCYTES (AUTO) 2.4 10^3/uL (0.5-4.7); ABSOLUTE MONOCYTES (AUTO) 0.6 10^3/uL (0.1-1.4); ABSOLUTE NEUT (AUTO) 2.8 10^3/uL (1.7-8.2); BASOPHILS % (AUTO) 0.6 % (0-2); EOSINOPHILS % (AUTO) 2.9 % (0-6); HEMATOCRIT 38.4 % (36.0-47.0); HEMOGLOBIN 12.4 g/dL (12.0-15.5); LYMPHOCYTES % (AUTO) 40.1 % (13-45); MEAN CORPUSCULAR HEMOGLOBIN 28.5 pg (27.0-33.4); MEAN CORPUSCULAR HGB CONC 32.4 g/dL (32.0-36.0); MEAN CORPUSCULAR VOLUME 88 fl (80-97); MONOCYTES % (AUTO) 9.4 % (3-13); PLATELET COUNT 277 10^3/uL (150-450); RED BLOOD COUNT 4.37 10^6/uL (3.72-5.28); RED CELL DISTRIBUTION WIDTH 15.7 % (11.5-14.0); TOTAL CELLS COUNTED % (AUTO) 100 %; WHITE BLOOD COUNT 5.9 10^3/uL (4.0-10.5)
[2018-04-18 14:43] VITALS: BP 110/78
== END 2018-04-18 14:43 | disposition home or self-care (01) ==
LOC: ER 12:04
DX: O20.0 Threatened abortion (principal); O34.01 Maternal care for unspecified congenital malformation of uterus, first trimester; Q51.3 Bicornate uterus; O26.891 Other specified pregnancy related conditions, first trimester; R11.0 Nausea; R10.9 Unspecified abdominal pain; O09.891 Supervision of other high risk pregnancies, first trimester; O99.331 Smoking (tobacco) complicating pregnancy, first trimester; Z3A.01 Less than 8 weeks gestation of pregnancy
CPT/HCPCS: 99284; 36415; 84702; 85025; 76801; 93976; S0119

== ENCOUNTER → 2018-05-20 | Outpatient (CLI) | payer MEDICAID ==
[2018-05-20 13:21] LABS: ALANINE AMINOTRANSFERASE 31 U/L (9-52); ALBUMIN 3.8 g/dL (3.5-5.0); ALKALINE PHOSPHATASE 58 U/L (38-126); ASPARTATE AMINO TRANSFERASE 30 U/L (14-36); BILIRUBIN,DIRECT 0.2 mg/dL (0.0-0.4); BILIRUBIN,TOTAL 0.4 mg/dL (0.2-1.3); TOTAL PROTEIN 7.3 g/dL (6.3-8.2)
[2018-05-22 10:38] LABS: HEPATITIS C QUANTITATION 130000 IU/mL (.)
== END ==
LOC: OD 11:54
PROVIDERS: ATTEND Physician Assistant Surgical
DX: B18.2 Chronic viral hepatitis C (principal)
CPT/HCPCS: 36415; 80076; 87522

== ENCOUNTER → 2019-05-12 | Outpatient (CLI) | payer MEDICAID ==
--- NOTE | 2019-05-12 09:18 | WOMENS IMAGING REPORT ---
EXAM DESCRIPTION: U/S ABDOMEN LIMITED COMPLETED DATE/TIME: 05/12/2019 9:10 am REASON FOR STUDY: RUQ;B18.2 B18.2 CHRONIC VIRAL HEPATITIS C COMPARISON: 05/01/2011 TECHNIQUE: Dynamic and static grayscale images acquired of the abdomen and recorded on PACS. Additio nal selected color Doppler and spectral images recorded. LIMITATIONS: None. FINDINGS: PANCREAS: Majority the pancreas is obscured by overlying bowel gas. LIVER: No masses. Echotexture normal. LIVER VASCULATURE: Normal directional flow of the main portal vein and hepatic veins. GALLBLADDER: No stones. Normal wall thickness. No pericholecystic fluid. ULTRASOUND-DETECTED GALAVIZ'S SIGN: Negative. INTRAHEPATIC DUCTS AND COMMON DUCT: CBD and intrahepatic ducts normal caliber. No filling defects. INFERIOR VENA CAVA: Normal flow. AORTA: Visualized portions of the aorta are normal in caliber. RIGHT KIDNEY: Normal size. Normal echogenicity. No solid or suspicious masses. No hydronephrosis. No calcifications. PERITONEAL AND RIGHT PLEURAL SPACE: No ascites or effusions. OTHER: No other significant findings. IMPRESSION: NORMAL RIGHT UPPER QUADRANT ULTRASOUND. TECHNICAL DOCUMENTATION: JOB ID: [id number] [employer]- All Rights Reserved Reading location - IP/workstation name: [email or web address]
== END ==
LOC: WI 09:03
PROVIDERS: ATTEND Internal Medicine Gastroenterology
DX: B18.2 Chronic viral hepatitis C (principal)
CPT/HCPCS: 76705

== ENCOUNTER → 2020-01-13 | Outpatient (CLI) | payer MEDICAID | LOC: OD 15:05 | PROVIDERS: ATTEND Physician Assistant | DX: B19.20 Unspecified viral hepatitis C without hepatic coma (principal) | CPT/HCPCS: 36415; 87522 ==